=== PATIENT | male | born 1955 | race Caucasian/White ===

== ENCOUNTER 2019-10-11 10:06 | Inpatient (IN) | payer MEDICARE, OTHER ==
[~2019-10-11] VITALS: Ht 172.7 cm; Wt 97.5 kg
--- NOTE | 2019-10-11 10:20 | NUR ---
ED Nurse Note: Patient walked into ED from home, sent by Dr. Flores for further evaluation. patient c/o shorntess of breath, generalized weakness for 1week. patient reports he is prescribed amoxicillin, with no improvement. patient is alert awake x4 ambulatory, able to speak in full sentences. does appear to be weak. 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 c/o pain on the left shoulder pain radiating to his left lower back.
[2019-10-11 10:57] LABS: BASOPHILS % (AUTO) 0.9 % (0.0-2.0); EOSINOPHILS % (AUTO) 1.5 % (0.0-3.0); HEMATOCRIT 42.7 % (42.0-52.0); HEMOGLOBIN 14.2 G/DL (14.2-18.0); LYMPHOCYTES % (AUTO) 5.8 % (20.0-45.0); MEAN CORPUSCULAR VOLUME 84 FL (80-99); MONOCYTES % (AUTO) 9.5 % (1.0-10.0); NEUTROPHILS % (AUTO) 82.3 % (45.0-75.0); PLATELET COUNT 159 K/UL (150-450); RED BLOOD COUNT 5.09 M/UL (4.70-6.10); RED CELL DISTRIBUTION WIDTH 13.2 % (11.6-14.8); WHITE BLOOD COUNT 12.6 K/UL (4.8-10.8)
[2019-10-11] MEDS ORDERED: Vancomycin 1.5 GM in NS 275 ML IVPB ONE (11:00)
[2019-10-11] MEDS ORDERED: Cefepime HCl 2 GM in D5W 55 ML IVPB ONE (11:00)
[2019-10-11] MEDS ORDERED: Morphine Sulfate 4mg/ml Inj (IV USE ONLY) IVP ONE (11:00)
--- NOTE | 2019-10-11 11:09 | Diagnostic Imaging Report ---
Indication: Chest pain Comparison: 09/03/2015 A single view chest radiograph was obtained. Findings: Pulmonary vascular congestion demonstrated. There is airspace consolidation at the left lung base obscuring the left hemidiaphragm. Pacemaker is again noted on the left. Heart is enlarged. IMPRESSION: CHF. Consolidation at the left lung base which may be related to CHF or superimposed pneumonia and/or effusion.
[2019-10-11 11:10] VITALS: BP 110/67
[2019-10-11 11:10] LABS: INR 1.2 (0.9-1.1)
[2019-10-11 11:12] LABS: ANION GAP 5 mmol/L (5-15); BLOOD UREA NITROGEN 60 mg/dL (7-18); CALCIUM 8.7 MG/DL (8.5-10.1); CARBON DIOXIDE 31 MMOL/L (21-32); CHLORIDE 91 MMOL/L (98-107); CREATININE 2.2 MG/DL (0.55-1.30); SODIUM 127 MMOL/L (136-145)
[2019-10-11 11:25] LABS: ALANINE AMINOTRANSFERASE 164 U/L (12-78); ALBUMIN 2.3 G/DL (3.4-5.0); ALBUMIN/GLOBULIN RATIO 0.5 (1.0-2.7); ALKALINE PHOSPHATASE 162 U/L (46-116); ASPARTATE AMINO TRANSFERASE 75 U/L (15-37); CREATINE KINASE 120 U/L (26-308); PHOSPHORUS 3.5 MG/DL (2.5-4.9)
--- NOTE | 2019-10-11 11:58 | NUR ---
ED Nurse Note: Nadine (): [phone]
--- NOTE | 2019-10-11 12:19 | NUR ---
ED Nurse Note: Urine specimen collected and sent to lab.
--- NOTE | 2019-10-11 12:50 | NUR ---
ED Nurse Note: NOTIFIED DR. ZAPATA THE PT.'S POTASSIUM LEVEL
[2019-10-11 12:55] LABS: APPEARANCE,URINE CLEAR; BILIRUBIN, URINE NEGATIVE (NEGATIVE); GLUCOSE, URINE (UA) NEGATIVE (NEGATIVE); KETONES,URINE NEGATIVE (NEGATIVE); LEUKOCYTE ESTERASE ,URINE NEGATIVE (NEGATIVE); NITRITE,URINE NEGATIVE (NEGATIVE); PH,URINE 5 (4.5-8.0); PROTEIN,URINE 3+ (NEGATIVE); UROBILINOGEN,URINE 1 MG/DL (0.0-1.0)
[2019-10-11 13:07] VITALS: BP 110/69
[2019-10-11 13:13] LABS: COLOR,URINE YELLOW
[2019-10-11] MEDS ORDERED: Enoxaparin 100mg Inj SUBQ ONE (13:15)
--- NOTE | 2019-10-11 13:39 | Emergency Room Report ---
History of Present Illness General Chief Complaint: Generalized Weakness Source: Patient Present Illness HPI 64-year-old male history of heart failure, CKD, hypertension, recently treated for pneumonia presents with fatigue generalized weakness x1 week, shortness of breath no known aggravating relieving factors severity is severe, constant patient was sent in by his primary care doctor for evaluation and treatment concerning for possible pneumonia versus CHF exacerbation Allergies: Coded Allergies: No Known Allergies (Unverified , 10/11/19) Patient History Past Medical History: see triage record Reviewed Nursing Documentation: PMH: Agreed; PSxH: Agreed Nursing Documentation-PMH Past Medical History: No History, Except For Hx Cardiac Problems: Yes - AFIB, CHF Hx Hypertension: Yes Hx Pacemaker: Yes Hx COPD: Yes Hx Diabetes: Yes Review of Systems All Other Systems: negative except mentioned in HPI Physical Exam Vital Signs Date Time Temp Pulse Resp B/P (MAP) Pulse Ox O2 Delivery O2 Flow Rate FiO2 10/11/19 10:16 97.7 70 19 68/ 90 Room Air Sp02 EP Interpretation: reviewed, normal General Appearance: well appearing, no apparent distress, alert Head: normocephalic, atraumatic Eyes: bilateral eye PERRL, bilateral eye EOMI ENT: uvula midline, dry mucus membranes Neck: supple, thyroid normal, supple/symm/no masses Respiratory: no respiratory distress, no retraction, no accessory muscle use, crackles - left lower lobe , rales - left lower lobe Cardiovascular #1: normal peripheral pulses, regular rate, rhythm, no edema, no gallop, no murmur Gastrointestinal: non tender, soft, no guarding, no rebound Musculoskeletal: normal inspection Neurologic: alert, oriented x3 Psychiatric: mood/affect normal Skin: no rash, warm/dry Procedures Critical Care Time Critical Care Time Given the critical condition in which the patient arrived, the patient was immediately assessed by myself and the nurse, and cardiac monitoring initiated due to the potential for rapid decompensation of the patient's clinical condition. During the course of the patient's stay, I spent a considerable amount of time at the bedside performing serial re-evaluations of the patient's hemodynamic and clinical status because of the recognized potential threat to life or limb in this condition. I then had a chance to review not only all of the available current laboratory and radiographic studies obtained today, but I also reviewed old records available to me at the time. Additionally, any ancillary information available including flux tube attendant records were reviewed. Sequential vital signs were obtained. Critical Care time of 31 minutes was performed exclusive of billable procedures. Medical Decision Making Diagnostic Impression: Primary Impression: Dehydration Additional Impressions: Failure of outpatient treatment Pneumonia Qualified Codes: J18.9 - Pneumonia, unspecified organism Sepsis Qualified Codes: A41.9 - Sepsis, unspecified organism NSTEMI (non-ST elevated myocardial infarction) ER Course 64-year-old male presents with vague complaints differential diagnosis includes sepsis, pneumonia, ACS, and NSTEMI patient given antibiotics for possible failure of outpatient treatment, patient with left lower lobe consolidation on x-ray as well as from exam Patient with history of AICD/pacemaker, will hold off on fluids unless lactic is elevated, patient also given a shot of Lovenox given his NSTEMI with slightly elevated troponin leak cefepime vancomycin Patient remains critical but stable we will continue to monitor Patient admitted to Dr. Castle Laboratory Tests Test 10/11/19 10:40 10/11/19 12:17 White Blood Count 12.6 K/UL (4.8-10.8) H Red Blood Count 5.09 M/UL (4.70-6.10) Hemoglobin 14.2 G/DL (14.2-18.0) Hematocrit 42.7 % (42.0-52.0) Mean Corpuscular Volume 84 FL (80-99) Mean Corpuscular Hemoglobin 27.8 PG (27.0-31.0) Mean Corpuscular Hemoglobin Concent 33.2 G/DL (32.0-36.0) Red Cell Distribution Width 13.2 % (11.6-14.8) Platelet Count 159 K/UL (150-450) Mean Platelet Volume 6.9 FL (6.5-10.1) Neutrophils (%) (Auto) 82.3 % (45.0-75.0) H Lymphocytes (%) (Auto) 5.8 % (20.0-45.0) L Monocytes (%) (Auto) 9.5 % (1.0-10.0) Eosinophils (%) (Auto) 1.5 % (0.0-3.0) Basophils (%) (Auto) 0.9 % (0.0-2.0) Prothrombin Time 12.4 SEC (9.30-11.50) H Prothrombin Time INR 1.2 (0.9-1.1) H Activated Partial Thromboplast Time 31 SEC (23-33) Sodium Level 127 MMOL/L (136-145) L Potassium Level 3.0 MMOL/L (3.5-5.1) L Chloride Level 91 MMOL/L (98-107) L Carbon Dioxide Level 31 MMOL/L (21-32) Anion Gap 5 mmol/L (5-15) Blood Urea Nitrogen 60 mg/dL (7-18) H Creatinine 2.2 MG/DL (0.55-1.30) H Estimate Glomerular Filtration Rate 30.4 mL/min (>60) Glucose Level 173 MG/DL (74-106) H Lactic Acid Level 1.20 mmol/L (0.4-2.0) Calcium Level 8.7 MG/DL (8.5-10.1) Phosphorus Level 3.5 MG/DL (2.5-4.9) Magnesium Level 2.2 MG/DL (1.8-2.4) Total Bilirubin 1.0 MG/DL (0.2-1.0) Aspartate Amino Transferase (AST) 75 U/L (15-37) H Alanine Aminotransferase (ALT) 164 U/L (12-78) H Alkaline Phosphatase 162 U/L (46-116) H Total Creatine Kinase 120 U/L (26-308) Troponin I 0.252 ng/mL (0.000-0.056) Pro-B-Type Natriuretic Peptide 3899 pg/mL (0-125) H Total Protein 7.3 G/DL (6.4-8.2) Albumin 2.3 G/DL (3.4-5.0) L Globulin 5.0 g/dL Albumin/Globulin Ratio 0.5 (1.0-2.7) L Lipase 356 U/L (73-393) Urine Color Yellow Urine Appearance Clear Urine pH 5 (4.5-8.0) Urine Specific [place] 1.020 (1.005-1.035) Urine Protein 3+ (NEGATIVE) H Urine Glucose (UA) Negative (NEGATIVE) Urine Ketones Negative (NEGATIVE) Urine Blood 2+ (NEGATIVE) H Urine Nitrite Negative (NEGATIVE) Urine Bilirubin Negative (NEGATIVE) Urine Urobilinogen 1 MG/DL (0.0-1.0) H Urine Leukocyte Esterase Negative (NEGATIVE) Urine RBC 2-4 /HPF (0 - 0) H Urine WBC 2-4 /HPF (0 - 0) Urine Squamous Epithelial Cells Occasional /LPF Urine Bacteria Occasional /HPF (NONE) Urine Granular Casts 0-2 /LPF (NONE) H Urine Fine Granular Casts 0-2 /LPF (NONE) H Microbiology Date/Time Source Procedure Growth Status 10/11/19 10:40 Nasal Nares - Final Complete 10/11/19 10:40 Nasal Nares - Final Complete EKG Diagnostic Results EKG Time: 11:36 EP Interpretation: V paced, rate 73, QTc 528, no acute ST elevations, right axis dev Rhythm Strip Diag. Results Rhythm Strip Time: 13:34 EP Interpretation: yes Rate: 80 Rhythm: other - V paced rhythm Chest X-Ray Diagnostic Results Chest X-Ray Diagnostic Results : Chest X-Ray Ordered: Yes # of Views/Limited/Complete: 1 View Indication: Chest Pain EP Interpretation: Yes Interpretation: other - Left lower lobe consolidation Impression: Other - Left lower lobe consolidation Electronically Signed by: Tomas Roque MD Last Vital Signs Date Time Temp Pulse Resp B/P (MAP) Pulse Ox O2 Delivery O2 Flow Rate FiO2 10/11/19 13:07 97.7 78 19 110/69 98 Room Air Disposition: ADMITTED INPATIENT Condition: Serious Referrals: NON PHYSICIAN (PCP) Tomas Roque MD Oct 11, 2019 13:39
[2019-10-11 14:45] VITALS: BP 117/62
--- NOTE | 2019-10-11 15:35 | NUR ---
ED Nurse Note: report given to Davon RN, endorsed all plan of care to him
--- NOTE | 2019-10-11 15:51 | NUR ---
ED Nurse Note: patient is being transferred to 2E with all of his belongings on ACLS protocol
[2019-10-11 16:30] VITALS: BP 135/83
[2019-10-11] MEDS ORDERED: Albuterol ud Inhalation HHN PRN (18:00)
[2019-10-11 20:00] VITALS: BP 123/82
[2019-10-11] MEDS: Albuterol ud Inhalation HHN SCH ×2 (20:11→23:29)
--- NOTE | 2019-10-11 20:28 | NUR ---
NURSE NOTES: Received pt from JUAN ROSARIO [id number], all admission assessments and instructions done and pt verbally confirmed to understand all. Pt is alert and orient x4. pt has SOB with NC 2LMP, Pt has intact iv access RAC 20G SL. Skin is intact.Dr blackman is notified about admission, WBC, K BS, and other lab results and V/S, all orders noted and carried out. pt doesn't remember the names of home meds, Dr blackman notified. all needs attended, bed is locked and is in the lowest position, call light within easy reach, will continue to monitor. Report given to KHANH WHITEHEAD.
--- NOTE | 2019-10-11 20:30 | NUR ---
NURSE NOTES: Received pt from VENTURA Marsh, Pt is alert and oriented x4. pt has SOB with 2 L O2 NC , Pt has intact IV access RAC 20G SL. Bed is locked and is in the lowest position, call light within reach, will continue to monitor.
[2019-10-11] MEDS: Piperacillin/Tazobactam 3.375 GM in NS 110 ML IVPB SCH (22:22)
[2019-10-11] MEDS: Azithromycin 250mg tab ORAL SCH (22:22)
[2019-10-11] MEDS: NovoLOG Insulin Flexpen SUBQ SCH (22:22)
[2019-10-12] VITALS: BP 118/71
[2019-10-12] MEDS: Albuterol ud Inhalation HHN SCH ×6 (02:58→22:48)
[2019-10-12 04:00] VITALS: BP 122/76
[2019-10-12 06:38] LABS: BASOPHILS % (AUTO) 0.7 % (0.0-2.0); EOSINOPHILS % (AUTO) 3.3 % (0.0-3.0); HEMATOCRIT 35.6 % (42.0-52.0); HEMOGLOBIN 12.2 G/DL (14.2-18.0); LYMPHOCYTES % (AUTO) 6.9 % (20.0-45.0); MEAN CORPUSCULAR VOLUME 85 FL (80-99); NEUTROPHILS % (AUTO) 80.2 % (45.0-75.0); PLATELET COUNT 179 K/UL (150-450); RED BLOOD COUNT 4.21 M/UL (4.70-6.10); RED CELL DISTRIBUTION WIDTH 13.4 % (11.6-14.8); WHITE BLOOD COUNT 11.6 K/UL (4.8-10.8)
[2019-10-12] MEDS: Piperacillin/Tazobactam 3.375 GM in NS 110 ML IVPB SCH ×3 (06:47→22:32)
[2019-10-12] MEDS: Vancomycin 1.25gm/NS Premix IVPB SCH (06:47)
[2019-10-12] MEDS: NovoLOG Insulin Flexpen SUBQ SCH ×4 (07:00→22:34)
[2019-10-12 07:15] LABS: ANION GAP 8 mmol/L (5-15); BLOOD UREA NITROGEN 56 mg/dL (7-18); CALCIUM 8.3 MG/DL (8.5-10.1); CARBON DIOXIDE 27 MMOL/L (21-32); CHLORIDE 95 MMOL/L (98-107); CREATININE 2.3 MG/DL (0.55-1.30); POTASSIUM 3.1 MMOL/L (3.5-5.1); SODIUM 130 MMOL/L (136-145)
--- NOTE | 2019-10-12 07:25 | NUR ---
NURSE NOTES: Received pt from KHANH WHITEHEAD, Pt is alert and orient x4. pt has SOB with NC 2LMP, Pt has intact iv access RAC 20G SL. Skin is intact.Dr blackman is notified about admission, WBC, K , other lab results waiting to call back. all needs attended, bed is locked and is in the lowest position, call light within easy reach, will continue to monitor.
[2019-10-12 08:00] VITALS: BP 123/83
--- NOTE | 2019-10-12 08:05 | NUR ---
HAND-OFF: Report given to VENTURA Marsh.
[2019-10-12] MEDS: Azithromycin 250mg tab ORAL SCH (08:56)
[2019-10-12] MEDS: Furosemide 40mg tab ORAL SCH (08:57)
[2019-10-12] MEDS: Carvedilol 25mg Tab ORAL SCH ×2 (08:57→22:32)
[2019-10-12] MEDS ORDERED: Xarelto 10mg tab ORAL SCH (09:00)
--- NOTE | 2019-10-12 09:17 | NUR ---
NURSE NOTES: pt refused thoracentesis, Dr POLO notified and he stated ok and ordered to start XARELTO, noted and carried out. will continue to monitor.
--- NOTE | 2019-10-12 09:25 | NUR ---
NURSE NOTES: 5MG XARELTO WASTED IN MED ROOM.
--- NOTE | 2019-10-12 11:03 | Diagnostic Imaging Report ---
Indication: Pleural effusion Technique: Grayscale and duplex images of the lateral hemithoraces Comparison: none Findings: There is a small left pleural effusion demonstrated. No pleural fluid is seen on the right Impression: Small left pleural effusion Note that ordered thoracentesis not performed, per patient request
[2019-10-12 12:00] VITALS: BP 121/73
--- NOTE | 2019-10-12 13:30 | History and Physical Report ---
DATE OF ADMISSION: 10/11/2019 REASON FOR ADMISSION: Pneumonia. HISTORY OF PRESENT ILLNESS: This is a 64-year-old male with history of heart failure, chronic kidney disease, presents with increasing shortness of breath, hypotension in the office. The patient also noted to be more dyspneic with some congestion. The patient overall did not improve and was noted to have what appeared to be fairly acute symptoms. The patient therefore was transferred to the emergency room and then thereafter admitted. The patient's care discussed and reviewed. The patient is feeling slightly better this morning after evaluation. The patient does have multitude of medical problems and also had significant pneumonia and possibly associated parapneumonic effusion on x-ray. The patient admits to some low-grade fevers. He does have oxygen at home, which he has been using more readily. PAST MEDICAL HISTORY: Notable for COPD, pacemaker, hypertension, CHF, atrial fibrillation paroxysmal, and chronic kidney disease. MEDICATIONS: Reviewed. ALLERGIES: Reviewed. SOCIAL HISTORY: The patient is a past smoker. Nonsmoker and nondrinker at present. REVIEW OF SYSTEMS: All 10 points reviewed and otherwise negative with the exception of the above. FAMILY HISTORY: Noncontributory as above. PHYSICAL EXAMINATION: GENERAL: Well-developed male, at present, comfortable. VITAL SIGNS: Blood pressure 122/76, pulse 71, respirations 20, sats 97%, temperature 97.9. HEENT: Negative. Extraocular movements are grossly intact. NECK: Supple. LUNGS: With significantly reduced breath sounds at the left lung base. Otherwise clear. CARDIAC: S1, S2, overall irregularly irregular. The patient has a pacemaker, left chest wall. ABDOMEN: Soft, nontender. EXTREMITIES: No cyanosis, clubbing, or edema. LABORATORY DATA: Sodium 130, BUN 56, creatinine 2.3. Previous sodium 127, potassium 3.1. Troponin 0.252. X-ray is noted with left lower lobe consolidation, possible effusion. IMPRESSION: 1. Pneumonia, possible parapneumonic effusion. 2. History of CHF. 3. Chronic renal failure. 4. Hyponatremia, hypokalemia. 5. Elevated troponin, possible demand ischemia. 6. Elevated natriuretic peptide. 7. Atrial fibrillation, paroxysmal. RECOMMENDATIONS: Supportive care. Resume home medication. IV antibiotics. Cardiology evaluation. ID evaluation. Follow up x-ray exam. Attempt to obtain thoracentesis and optimize care as able. Care discussed and reviewed and once approval to proceed with discharge planning with home health. Vasile Castle M.D. DR: TISH JOB#: [id number] CC: RUT
--- NOTE | 2019-10-12 14:12 | NUR ---
CASE MANAGEMENT:REVIEW 64 YR OLD MALE PRESENTED TO OUR ER CC: GENERALIZED WEAKNESS. SOB SI: DEHYDRATION. SEPSIS. PNA 97.7 70 19 BP~68/L 90% ON RA WBC+12.6 IS: LOVENOX SQ IV KCL PO K-DUR IV CEFEPIME IV VANCOMYCIN IV MORPHINE IV ZOFRAN CHEST XRAY : TO TELEMETRY DCP: FROM HOME I
[2019-10-12 15:48] VITALS: BP 125/74
--- NOTE | 2019-10-12 17:45 | Consultation ---
DATE OF CONSULTATION: 10/12/2019 INFECTIOUS DISEASES CONSULTATION CONSULTING PHYSICIAN: Mari Bloom M.D. REFERRING PHYSICIAN: Vasile Castle M.D. REASON FOR CONSULTATION: Pneumonia. HISTORY OF PRESENTING ILLNESS: This is a 64-year-old gentleman with history of diabetes, hypertension, congestive heart failure, atrial fibrillation, status post pacemaker placement and defibrillator placement who was recently treated for pneumonia who comes in with shortness of breath, cough along with pain on coughing. There was a concern for pneumonia and an Infectious Diseases consultation has been obtained for antibiotics. PAST MEDICAL HISTORY: 1. History of diabetes. 2. Hypertension. 3. Asthma. 4. History of pacemaker placement. 5. History of defibrillator placement. 6. History of congestive heart failure. 7. Atrial fibrillation. SOCIAL HISTORY: He used to be a smoker. He does not smoke anymore. He used to drink alcohol. He does not drink anymore. No history of drug use. FAMILY HISTORY: Noncontributory. REVIEW OF SYSTEMS: RESPIRATORY: No fever or chills. He has cough. He has shortness of breath. He has pain on coughing. CARDIAC: No chest pain. No palpitations. No dizziness. No syncope. GASTROINTESTINAL: No nausea. No vomiting. No abdominal pain or diarrhea. MEDICATIONS: As an inpatient, he is on Xarelto, Protonix, Coreg, Lasix, IV vancomycin, Zosyn, insulin, azithromycin, Proventil, albuterol, Tylenol, Mylanta. ALLERGIES: No known drug allergies. PHYSICAL EXAMINATION: VITAL SIGNS: Temperature of 97.3, T-max of 98.2, pulse of 72, respiratory rate 18, blood pressure 123/83, O2 saturation of 94%. HEENT: Pupils equally reactive to light and accommodation. Mouth appears clean without thrush. NECK: Supple. No adenopathy. No JVD. CARDIOVASCULAR: Regular rate and rhythm. No murmurs. LUNGS: Clear to auscultation bilaterally. No crackles. No wheezes. ABDOMEN: Soft, nontender. No organomegaly. EXTREMITIES: No cyanosis, no clubbing, no edema. LABORATORY AND DIAGNOSTIC DATA: White count of 11.6 today, white count of 12.6 yesterday, hemoglobin 12.2, hematocrit 35.6, MCV 85, platelet count of 179, neutrophils of 80%. Sodium 130, potassium 3.1, chloride 95, bicarb 27, BUN 56, creatinine 2.3, glucose 182, calcium 8.3. Total bilirubin 1, AST 75, ALT 164, alkaline phosphatase 162. CK 120, troponin 0.25. Beta natriuretic peptide 3899. Total protein 7.3, albumin 2.3. Alkaline phosphatase 356. UA is showing 2 to 4 white cells. Chest x-ray showing consolidation at the left lung base, which may be related to congestive heart failure, pneumonia, or effusion. ASSESSMENT: This is a 64-year-old male with history of hypertension, diabetes, congestive heart failure who comes in with shortness of breath and is found to have. 1. Possible community-acquired pneumonia versus atypical pneumonia. 2. Diabetes. 3. Hypertension. 4. Leukocytosis, improving. 5. Congestive heart failure. PLAN: 1. Continue vancomycin, Zosyn, and azithromycin. 2. We will order sputum for Gram stain and culture. 3. We will order for serum Legionella antibody. 4. We will order for mycoplasma serology. 5. We will follow up cultures and adjust antibiotics accordingly. I would like to thank, Dr. Castle, for this consultation. Mari Bloom M.D. DR: KRISTIN JOB#: [id number] CC: Vasile Castle M.D.; Fax#: [phone]
--- NOTE | 2019-10-12 19:38 | NUR ---
HAND-OFF: Report given to KHANH WHITEHEAD. Pt is awake and stable.
--- NOTE | 2019-10-12 19:40 | NUR ---
NURSE NOTES: Pt is alert and oriented x4. On 2 L O2 NC , has some painful cough. Pt has intact IV access RAC 20G SL. Bed is locked and is in the lowest position, call light within reach, will continue to monitor.
[2019-10-12 20:00] VITALS: BP 115/67
[2019-10-13] VITALS (7 sets, daily range): BP systolic 95–127; BP diastolic 50–80
[2019-10-13] MEDS: Albuterol ud Inhalation HHN SCH ×6 (03:33→23:15)
[2019-10-13] MEDS: NovoLOG Insulin Flexpen SUBQ SCH ×4 (06:50→20:50)
[2019-10-13] MEDS: Piperacillin/Tazobactam 3.375 GM in NS 110 ML IVPB SCH ×3 (06:51→22:13)
[2019-10-13] MEDS: Vancomycin 1.25gm/NS Premix IVPB SCH (06:54)
[2019-10-13 07:24] LABS: BASOPHILS % (AUTO) 0.4 % (0.0-2.0); EOSINOPHILS % (AUTO) 4.2 % (0.0-3.0); HEMOGLOBIN 13.2 G/DL (14.2-18.0); LYMPHOCYTES % (AUTO) 7.8 % (20.0-45.0); MEAN CORPUSCULAR VOLUME 85 FL (80-99); NEUTROPHILS % (AUTO) 80.6 % (45.0-75.0); PLATELET COUNT 225 K/UL (150-450); RED BLOOD COUNT 4.59 M/UL (4.70-6.10); RED CELL DISTRIBUTION WIDTH 13.5 % (11.6-14.8); WHITE BLOOD COUNT 12.6 K/UL (4.8-10.8)
[2019-10-13 07:35] LABS: ANION GAP 9 mmol/L (5-15); BLOOD UREA NITROGEN 48 mg/dL (7-18); CALCIUM 8.4 MG/DL (8.5-10.1); CARBON DIOXIDE 29 MMOL/L (21-32); CHLORIDE 96 MMOL/L (98-107); CREATININE 2.4 MG/DL (0.55-1.30); POTASSIUM 3.5 MMOL/L (3.5-5.1); SODIUM 134 MMOL/L (136-145)
--- NOTE | 2019-10-13 08:06 | NUR ---
NURSE NOTES: Received patient from Elgin Barlow. Patient is awake sitting up in bed. No complain of pain or discomfort at this time. Patient is eating his breakfast. Reminded patient regarding fall precautions,verbalizes understanding. Will monitor patient this shift.
--- NOTE | 2019-10-13 08:30 | NUR ---
HAND-OFF: Report given to VENTURA Cao.
[2019-10-13] MEDS: Xarelto 15mg tab ORAL SCH (08:38)
[2019-10-13] MEDS: Furosemide 40mg tab ORAL SCH (08:38)
[2019-10-13] MEDS: Azithromycin 250mg tab ORAL SCH (08:39)
[2019-10-13] MEDS: Carvedilol 25mg Tab ORAL SCH ×2 (08:39→20:43)
--- NOTE | 2019-10-13 08:53 | NUR ---
CASE MANAGEMENT:REVIEW 10/13/19 SI: SEPSIS. PNA T~96.0 BP~95/58 WBC+12.6 BUN+48 CR+2.4 IS: IV ZOSYN Q8HRS IV VANCOMYCIN Q24 XARELTO PO QD COREG PO Q12 LASIX PO QD : TELEMETRY STATUS DCP: FROM HOME
[2019-10-13] MEDS ORDERED: Vancomycin 1.5gm/D5W 275ml IVPB SCH ×2 (12:00)
[2019-10-13] MEDS ORDERED: Vancomycin 1.5gm/NS Premix 275 ML IVPB SCH (12:00)
[2019-10-13] MEDS: guaiFENesin 100mg/5ml Liq ud ORAL PRN ×3 (12:47→22:14)
--- NOTE | 2019-10-13 13:01 | Diagnostic Imaging Report ---
Indication: Shortness of breath Technique: One view of the chest Comparison: 10/11/2019 Findings: Dense consolidation and likely pleural fluid again demonstrated in the left mid and lower lung, appearing more extensive superiorly. Interstitial edema on the right is unchanged. Left chest biventricular AICD is again demonstrated. Impression: Worsening parenchymal infiltrates versus edema on the left. Otherwise stable findings as described, over 2 days
--- NOTE | 2019-10-13 13:11 | Cardiac Electrophysiology PN ---
Subjective Subjective [id number] Objective Last 24 Hour Vital Signs Date Time Temp Pulse Resp B/P (MAP) Pulse Ox O2 Delivery O2 Flow Rate FiO2 10/13/19 12:00 97.8 74 20 119/69 (86) 94 10/13/19 10:11 78 18 99 Nasal Cannula 2.0 28 74 18 97 10/13/19 09:00 Nasal Cannula 2.0 10/13/19 08:39 75 95/58 10/13/19 08:00 97.7 75 20 95/58 (70) 93 10/13/19 08:00 78 10/13/19 07:16 96 Room Air 2.0 28 10/13/19 07:15 75 18 98 Nasal Cannula 2.0 28 70 18 96 10/13/19 04:41 96.6 74 17 96/50 (65) 92 10/13/19 04:00 73 10/13/19 04:00 96.9 71 17 107/62 (77) 96 10/13/19 03:20 83 18 100 Nasal Cannula 2.0 28 81 18 96 10/13/19 00:00 96.9 71 17 107/62 (77) 96 10/13/19 00:00 73 10/13/19 00:00 96.0 73 18 105/67 (80) 95 10/12/19 22:48 80 18 100 Nasal Cannula 2.0 79 18 97 10/12/19 22:32 73 120/67 10/12/19 21:00 Nasal Cannula 2.0 10/12/19 20:00 72 10/12/19 20:00 97.0 73 18 115/67 (83) 95 10/12/19 19:38 78 18 100 Nasal Cannula 2.0 77 18 99 10/12/19 19:38 99 Room Air 21 10/12/19 17:51 97.1 10/12/19 16:04 71 10/12/19 15:48 97.1 75 18 125/74 (91) 93 10/12/19 14:57 75 18 98 Nasal Cannula 2.0 28 73 18 91 Intake and Output 10/12/19 10/13/19 19:00 07:00 Intake Total 810.833 ml 200 ml Output Total 950 ml 1000 ml Balance -139.167 ml -800 ml Intake Oral 490 ml IV Total 320.833 ml Other 200 ml Output Urine Total 950 ml 1000 ml # Voids 4 Laboratory Tests Test 10/13/19 05:26 White Blood Count 12.6 K/UL (4.8-10.8) H Red Blood Count 4.59 M/UL (4.70-6.10) L Hemoglobin 13.2 G/DL (14.2-18.0) L Hematocrit 39.0 % (42.0-52.0) L Mean Corpuscular Volume 85 FL (80-99) Mean Corpuscular Hemoglobin 28.8 PG (27.0-31.0) Mean Corpuscular Hemoglobin Concent 33.9 G/DL (32.0-36.0) Red Cell Distribution Width 13.5 % (11.6-14.8) Platelet Count 225 K/UL (150-450) Mean Platelet Volume 6.1 FL (6.5-10.1) L Neutrophils (%) (Auto) 80.6 % (45.0-75.0) H Lymphocytes (%) (Auto) 7.8 % (20.0-45.0) L Monocytes (%) (Auto) 7.0 % (1.0-10.0) Eosinophils (%) (Auto) 4.2 % (0.0-3.0) H Basophils (%) (Auto) 0.4 % (0.0-2.0) Sodium Level 134 MMOL/L (136-145) L Potassium Level 3.5 MMOL/L (3.5-5.1) Chloride Level 96 MMOL/L (98-107) L Carbon Dioxide Level 29 MMOL/L (21-32) Anion Gap 9 mmol/L (5-15) Blood Urea Nitrogen 48 mg/dL (7-18) H Creatinine 2.4 MG/DL (0.55-1.30) H Estimat Glomerular Filtration Rate 27.5 mL/min (>60) Glucose Level 162 MG/DL (74-106) H Calcium Level 8.4 MG/DL (8.5-10.1) L Random Vancomycin Level 12.5 ug/mL Microbiology Date/Time Source Procedure Growth Status 10/11/19 11:15 Blood Blood Culture - Preliminary NO GROWTH AFTER 24 HOURS Resulted 10/11/19 10:40 Blood Blood Culture - Preliminary NO GROWTH AFTER 24 HOURS Resulted 10/11/19 10:40 Nasal Nares - Final Complete 10/11/19 10:40 Nasal Nares - Final Complete Hong Leon MD Oct 13, 2019 13:11
--- NOTE | 2019-10-13 14:13 | Infectious Diseases Prog Note ---
Assessment/Plan Assessment/Plan A; 1. Possible community-acquired pneumonia versus atypical pneumonia. 2. Diabetes. 3. Hypertension. 4. Leukocytosis, improving. 5. Congestive heart failure. PLAN: 1. Continue vancomycin, Zosyn, and azithromycin. 2. We will follow sputum for Gram stain and culture. 3. We will follow serum Legionella antibody. 4. We will follow mycoplasma serology. 5. We will follow up cultures and adjust antibiotics accordingly. Subjective ROS Limited/Unobtainable: No Constitutional: Reports: no symptoms Respiratory: Reports: dry cough Gastrointestinal/Abdominal: Reports: no symptoms Genitourinary: Reports: no symptoms Musculoskeletal: Reports: pain, other - back, shoulder chest Allergies: Coded Allergies: No Known Allergies (Unverified , 10/11/19) Objective Vital Signs Last 24 Hour Vital Signs Date Time Temp Pulse Resp B/P (MAP) Pulse Ox O2 Delivery O2 Flow Rate FiO2 10/13/19 12:00 76 10/13/19 12:00 97.8 74 20 119/69 (86) 94 10/13/19 10:11 78 18 99 Nasal Cannula 2.0 28 74 18 97 10/13/19 09:00 Nasal Cannula 2.0 10/13/19 08:39 75 95/58 10/13/19 08:00 97.7 75 20 95/58 (70) 93 10/13/19 08:00 78 10/13/19 07:16 96 Room Air 2.0 28 10/13/19 07:15 75 18 98 Nasal Cannula 2.0 28 70 18 96 10/13/19 04:41 96.6 74 17 96/50 (65) 92 10/13/19 04:00 73 10/13/19 04:00 96.9 71 17 107/62 (77) 96 10/13/19 03:20 83 18 100 Nasal Cannula 2.0 28 81 18 96 10/13/19 00:00 96.9 71 17 107/62 (77) 96 10/13/19 00:00 73 10/13/19 00:00 96.0 73 18 105/67 (80) 95 10/12/19 22:48 80 18 100 Nasal Cannula 2.0 28 79 18 97 10/12/19 22:32 73 120/67 10/12/19 21:00 Nasal Cannula 2.0 1/28/20 20:00 72 10/12/19 20:00 97.0 73 18 115/67 (83) 95 10/12/19 19:38 78 18 100 Nasal Cannula 2.0 28 77 18 99 10/12/19 19:38 99 Room Air 21 10/12/19 17:51 97.1 10/12/19 16:04 71 10/12/19 15:48 97.1 75 18 125/74 (91) 93 10/12/19 14:57 75 18 98 Nasal Cannula 2.0 28 73 18 91 Height (Feet): 5 Height (Inches): 8.00 Weight (Pounds): 215 HEENT: mucous membranes moist Respiratory/Chest: normal breath sounds Cardiovascular: normal rate, pacemaker/AICD Abdomen: soft, non tender Extremities: no edema Neurologic/Psychiatric: alert, oriented x 3, responsive Microbiology Date/Time Source Procedure Growth Status 10/11/19 11:15 Blood Blood Culture - Preliminary NO GROWTH AFTER 24 HOURS Resulted 10/11/19 10:40 Blood Blood Culture - Preliminary NO GROWTH AFTER 24 HOURS Resulted 10/11/19 10:40 Nasal Nares - Final Complete 10/11/19 10:40 Nasal Nares - Final Complete Laboratory Tests Test 10/13/19 05:26 White Blood Count 12.6 K/UL (4.8-10.8) H Red Blood Count 4.59 M/UL (4.70-6.10) L Hemoglobin 13.2 G/DL (14.2-18.0) L Hematocrit 39.0 % (42.0-52.0) L Mean Corpuscular Volume 85 FL (80-99) Mean Corpuscular Hemoglobin 28.8 PG (27.0-31.0) Mean Corpuscular Hemoglobin Concent 33.9 G/DL (32.0-36.0) Red Cell Distribution Width 13.5 % (11.6-14.8) Platelet Count 225 K/UL (150-450) Mean Platelet Volume 6.1 FL (6.5-10.1) L Neutrophils (%) (Auto) 80.6 % (45.0-75.0) H Lymphocytes (%) (Auto) 7.8 % (20.0-45.0) L Monocytes (%) (Auto) 7.0 % (1.0-10.0) Eosinophils (%) (Auto) 4.2 % (0.0-3.0) H Basophils (%) (Auto) 0.4 % (0.0-2.0) Sodium Level 134 MMOL/L (136-145) L Potassium Level 3.5 MMOL/L (3.5-5.1) Chloride Level 96 MMOL/L (98-107) L Carbon Dioxide Level 29 MMOL/L (21-32) Anion Gap 9 mmol/L (5-15) Blood Urea Nitrogen 48 mg/dL (7-18) H Creatinine 2.4 MG/DL (0.55-1.30) H Estimat Glomerular Filtration Rate 27.5 mL/min (>60) Glucose Level 162 MG/DL (74-106) H Calcium Level 8.4 MG/DL (8.5-10.1) L Random Vancomycin Level 12.5 ug/mL Current Medications Medications (Trade) Dose Ordered Sig/Trudy Route PRN Reason Start Time Stop Time Status Last Admin Dose Admin Acetaminophen (Tylenol) 650 mg Q4H PRN ORAL Mild Pain/Temp > 100.5 10/11/19 18:00 11/10/19 17:59 10/12/19 17:21 Al Hydroxide/Mg Hydroxide (Mylanta) 30 ml QIDPRN PRN ORAL Constipation 10/11/19 18:00 11/10/19 17:59 Albuterol Sulfate (Proventil) 2.5 mg Q4H PRN HHN Shortness of Breath 10/11/19 18:00 10/16/19 17:59 Albuterol Sulfate (Proventil) 2.5 mg Q4HRT HHN 10/11/19 19:00 10/16/19 18:59 10/13/19 10:11 Aspirin (Ecotrin) 81 mg DAILY ORAL 10/14/19 09:00 11/13/19 08:59 Atorvastatin Calcium (Lipitor) 20 mg BEDTIME ORAL 10/13/19 21:00 11/12/19 20:59 Azithromycin (Zithromax) 500 mg DAILY ORAL 10/11/19 20:00 10/18/19 19:59 10/13/19 08:39 Carvedilol (Coreg) 25 mg EVERY 12 HOURS ORAL 10/13/19 21:00 11/11/19 08:59 Dextrose (Dextrose 50%) 25 ml Q30M PRN IV Hypoglycemia 10/11/19 18:00 11/10/19 17:59 Dextrose (Dextrose 50%) 50 ml Q30M PRN IV Hypoglycemia 10/11/19 18:00 11/10/19 17:59 Furosemide (Lasix) 40 mg EVERY 12 HOURS IV 10/13/19 21:00 11/12/19 20:59 Guaifenesin (Robitussin) 300 mg Q4H PRN ORAL For Cough 10/13/19 10:27 11/12/19 10:26 10/13/19 12:47 Hydralazine HCl (Apresoline) 10 mg Q6HR ORAL 10/13/19 18:00 11/12/19 17:59 Insulin Aspart (NovoLOG) BEFORE MEALS AND HS SUBQ 10/11/19 21:00 11/10/19 20:59 10/13/19 12:49 Isosorbide Dinitrate (Isordil) 10 mg BID ORAL 10/13/19 18:00 11/12/19 17:59 Pantoprazole (Protonix) 40 mg DAILY ORAL 10/12/19 09:00 11/11/19 08:59 10/13/19 08:38 Piperacillin Sod/ Tazobactam Sod 3.375 gm/Sodium Chloride 110 ml @ 27.5 mls/hr Q8HR IVPB 10/11/19 22:00 10/18/19 21:59 10/13/19 06:51 Rivaroxaban (Xarelto) 15 mg DAILY ORAL 10/13/19 09:00 11/11/19 08:59 10/13/19 08:38 Vancomycin HCl (Vanco rx to dose) 1 ea DAILY PRN MISC Per rx protocol 10/11/19 18:00 11/10/19 17:59 [place] David MD Oct 13, 2019 14:13
[2019-10-13] MEDS: HydrALAZINE 10mg Tab ORAL SCH (17:16)
--- NOTE | 2019-10-13 17:29 | General Progress Note ---
Assessment/Plan Assessment/Plan: IMPRESSION: 1. Pneumonia, possible parapneumonic effusion. 2. History of CHF. 3. Chronic renal failure. 4. Hyponatremia, hypokalemia. 5. Elevated troponin, possible demand ischemia. 6. Elevated natriuretic peptide. 7. Atrial fibrillation, paroxysmal. PLAN care noted on lasix cards and ID oxygen not ready for dc follow up cxr and bnp reviewed with patient impression, plan, and exam edited and reviewed in detail care discussed with RN Subjective Allergies: Coded Allergies: No Known Allergies (Unverified , 10/11/19) Subjective care noted patient still with sob refused tap US noted Objective Last 24 Hour Vital Signs Date Time Temp Pulse Resp B/P (MAP) Pulse Ox O2 Delivery O2 Flow Rate FiO2 10/13/19 17:16 125/80 10/13/19 17:16 125/80 10/13/19 16:00 97.5 80 20 125/80 (95) 95 10/13/19 12:00 76 10/13/19 12:00 97.8 74 20 119/69 (86) 94 10/13/19 10:11 78 18 99 Nasal Cannula 2.0 28 74 18 97 10/13/19 09:00 Nasal Cannula 2.0 10/13/19 08:39 75 95/58 10/13/19 08:00 97.7 75 20 95/58 (70) 93 10/13/19 08:00 78 10/13/19 07:16 96 Room Air 2.0 28 10/13/19 07:15 75 18 98 Nasal Cannula 2.0 28 70 18 96 10/13/19 04:41 96.6 74 17 96/50 (65) 92 10/13/19 04:00 73 10/13/19 04:00 96.9 71 17 107/62 (77) 96 10/13/19 03:20 83 18 100 Nasal Cannula 2.0 28 81 18 96 10/13/19 00:00 96.9 71 17 107/62 (77) 96 10/13/19 00:00 73 10/13/19 00:00 96.0 73 18 105/67 (80) 95 10/12/19 22:48 80 18 100 Nasal Cannula 2.0 28 79 18 97 10/12/19 22:32 73 120/67 10/12/19 21:00 Nasal Cannula 2.0 10/12/19 20:00 72 10/12/19 20:00 97.0 73 18 115/67 (83) 95 10/12/19 19:38 78 18 100 Nasal Cannula 2.0 28 77 18 99 10/12/19 19:38 99 Room Air 21 10/12/19 17:51 97.1 Intake and Output 10/12/19 10/13/19 19:00 07:00 Intake Total 810.833 ml 200 ml Output Total 950 ml 1000 ml Balance -139.167 ml -800 ml Intake Oral 490 ml IV Total 320.833 ml Other 200 ml Output Urine Total 950 ml 1000 ml # Voids 4 Laboratory Tests 10/13/19 05:26: White Blood Count 12.6H, Red Blood Count 4.59L, Hemoglobin 13.2L, Hematocrit 39.0L, Mean Corpuscular Volume 85, Mean Corpuscular Hemoglobin 28.8, Mean Corpuscular Hemoglobin Concent 33.9, Red Cell Distribution Width 13.5, Platelet Count 225, Mean Platelet Volume 6.1L, Neutrophils (%) (Auto) 80.6H, Lymphocytes (%) (Auto) 7.8L, Monocytes (%) (Auto) 7.0, Eosinophils (%) (Auto) 4.2H, Basophils (%) (Auto) 0.4, Sodium Level 134L, Potassium Level 3.5, Chloride Level 96L, Carbon Dioxide Level 29, Anion Gap 9, Blood Urea Nitrogen 48H, Creatinine 2.4H, Estimat Glomerular Filtration Rate 27.5, Glucose Level 162H, Calcium Level 8.4L, Random Vancomycin Level 12.5 Height (Feet): 5 Height (Inches): 8.00 Weight (Pounds): 215 Objective GENERAL: Well-developed male, at present, comfortable. but still weak HEENT: Negative. Extraocular movements are grossly intact. NECK: Supple. LUNGS: With significantly reduced breath sounds at the left lung base. Otherwise clear. CARDIAC: S1, S2, overall irregularly irregular. The patient has a pacemaker, left chest wall. ABDOMEN: Soft, nontender. EXTREMITIES: No cyanosis, clubbing, or edema. Vasile Castle MD Oct 13, 2019 17:29
--- NOTE | 2019-10-13 17:30 | Consultation ---
DATE OF CONSULTATION: 10/13/2019 CARDIOLOGY CONSULTATION CONSULTING PHYSICIAN: Hong Leon M.D. REFERRING PHYSICIAN: Vasile Castle M.D. REASON FOR CONSULTATION: Evaluation of the patient's defibrillator and management of congestive heart failure and atrial fibrillation. HISTORY OF PRESENT ILLNESS: The patient is a 64-year-old gentleman with history of hypertension, diabetes, and severe cardiomyopathy as well as history of atrial fibrillation, who underwent a defibrillator implantation by Dr. Moulton originally in 2007 and subsequently underwent a generator change in 2013. The patient presented to the hospital for increasing shortness of breath and cough. The patient was evaluated by ID and started on IV antibiotic, and a Cardiology consultation was requested for management of congestive heart failure. REVIEW OF SYSTEMS: Negative other than what was mentioned in the history of present illness. PAST MEDICAL HISTORY: As mentioned above. FAMILY HISTORY: Noncontributory. SOCIAL HISTORY: He lives at home. Does not smoke or drink alcohol. PHYSICAL EXAMINATION: VITAL SIGNS: Show blood pressure 119/69, pulse 74, respirations 20, and he is afebrile. HEAD AND NECK: Shows positive JVD, but no carotid bruits. LUNGS: Coarse rhonchi. CARDIOVASCULAR: Shows irregular S1 and S2 with no gallop. Defibrillator in left subclavian. ABDOMEN: Soft. EXTREMITIES: 1+ pitting edema. LABORATORY AND DIAGNOSTIC DATA: His labs show white count of 12.6, hemoglobin 13.2, hematocrit 39, and platelet count 225,000. Sodium 134, potassium 3.5, BUN of 40, creatinine 2.4, and glucose of 162. Troponin is 0.252. ASSESSMENT AND PLAN: 1. Non-ST elevation myocardial infarction with elevated troponin at in a patient with history of cardiomyopathy and congestive heart failure. The patient, however, also has renal failure and this might be due to renal failure. We will keep the patient on aspirin, beta-sherlyn, and statin. We will repeat cardiac enzymes and echocardiogram for further evaluation. 2. History of severe cardiomyopathy. An echocardiogram is pending. The patient currently on Coreg 25 mg b.i.d. and Lasix 80 mg p.o. daily. I will hold off on the SRINI inhibitor and add hydralazine and nitrates to his medical regimen, change Lasix to 40 mg IV b.i.d. 3. Chronic atrial fibrillation, rate is controlled on Xarelto 15 mg daily, and he is also on Coreg 25 mg b.i.d. 4. Status post [facility] biventricular defibrillator and recent generator change. We will interrogate device for further evaluation. 5. Chronic obstructive pulmonary disease and pneumonia. Management by Dr. Castle and Dr. Bloom, on IV antibiotics. Thank you very much for allowing me to participate in the care of this patient. Please do not hesitate to contact me for any questions regarding my evaluation. Hong Leon M.D. DR: YANI JOB#: [id number] CC:
[2019-10-13] MEDS ORDERED: HydrALAZINE 10mg Tab ORAL SCH (18:00)
--- NOTE | 2019-10-13 19:45 | NUR ---
HAND-OFF: Report given to Elgin Mercado. Plan of care endorsed.
--- NOTE | 2019-10-13 19:56 | NUR ---
NURSE NOTES: Received report from VENTURA Cao. Patient is awake sitting on the edge of the bed; resting comfortably. No signs of acute distress noted; complains of some pain. On 2L nasal cannula. AOx4; able to make needs known. Ambulates with walker. Checked Iv site; patent and flushed. No erythema, bleeding, or infiltration noted. Urinal easily accessible. Bed at lowest position, brakes on, siderails up x3. Call light within reach. Will continue to monitor.
[2019-10-13] MEDS: Atorvastatin 20mg tab ORAL SCH (20:43)
[2019-10-14] VITALS (7 sets, daily range): BP systolic 99–127; BP diastolic 60–75
[2019-10-14] MEDS: HydrALAZINE 10mg Tab ORAL SCH ×4 (00:56→17:05)
[2019-10-14] MEDS: Albuterol ud Inhalation HHN SCH ×6 (03:00→23:00)
[2019-10-14] MEDS: guaiFENesin 100mg/5ml Liq ud ORAL PRN ×2 (05:20→17:05)
[2019-10-14] MEDS: Piperacillin/Tazobactam 3.375 GM in NS 110 ML IVPB SCH ×3 (05:22→21:11)
[2019-10-14] MEDS: NovoLOG Insulin Flexpen SUBQ SCH ×4 (05:23→21:12)
--- NOTE | 2019-10-14 07:16 | NUR ---
HAND-OFF: Report given to VENTURA Rodrigues. Patient is asleep lying semi-herrera's; resting comfortably. In stable condition.
[2019-10-14] MEDS: Aspirin EC 81mg tab ORAL SCH (08:50)
[2019-10-14] MEDS: Carvedilol 25mg Tab ORAL SCH ×2 (09:08→21:10)
[2019-10-14] MEDS: Xarelto 15mg tab ORAL SCH (09:09)
[2019-10-14] MEDS: Azithromycin 250mg tab ORAL SCH (09:09)
--- NOTE | 2019-10-14 09:31 | Infectious Diseases Prog Note ---
Assessment/Plan Assessment/Plan A; 1. Possible community-acquired pneumonia versus atypical pneumonia. 2. Diabetes. 3. Hypertension. 4. Leukocytosis, improving. 5. Congestive heart failure. PLAN: 1. Continue vancomycin, Zosyn, and azithromycin. 2. We will follow sputum for Gram stain and culture. 3. We will follow serum Legionella antibody. 4. We will follow mycoplasma serology. 5. We will follow up cultures and adjust antibiotics accordingly. Subjective ROS Limited/Unobtainable: Yes Constitutional: Denies: fever Allergies: Coded Allergies: No Known Allergies (Unverified , 10/11/19) Objective Vital Signs Last 24 Hour Vital Signs Date Time Temp Pulse Resp B/P (MAP) Pulse Ox O2 Delivery O2 Flow Rate FiO2 10/14/19 09:08 74 112/74 10/14/19 09:08 112/74 10/14/19 08:20 74 20 98 Nasal Cannula 2.0 28 76 20 93 10/14/19 08:19 93 Room Air 21 10/14/19 08:00 97.9 76 20 112/74 (87) 93 10/14/19 05:23 110/60 10/14/19 04:00 98.2 72 18 110/60 (77) 98 10/14/19 04:00 84 10/14/19 00:56 99/60 10/14/19 00:00 97.3 75 18 99/60 (73) 99 10/14/19 00:00 75 10/13/19 23:17 76 18 99 Nasal Cannula 2.0 28 73 18 97 10/13/19 21:00 Nasal Cannula 2.0 10/13/19 20:43 73 127/75 10/13/19 20:00 98.7 74 19 127/75 (92) 95 10/13/19 20:00 73 10/13/19 19:40 77 20 99 Nasal Cannula 2.0 28 74 20 97 10/13/19 19:39 97 Nasal Cannula 2.0 28 10/13/19 17:16 125/80 10/13/19 17:16 125/80 10/13/19 16:00 97.5 80 20 125/80 (95) 95 10/13/19 16:00 81 10/13/19 12:00 76 10/13/19 12:00 97.8 74 20 119/69 (86) 94 10/13/19 10:11 78 18 99 Nasal Cannula 2.0 28 74 18 97 Height (Feet): 5 Height (Inches): 8.00 Weight (Pounds): 215 General Appearance: no acute distress HEENT: mucous membranes moist Respiratory/Chest: lungs clear Cardiovascular: normal rate, pacemaker/AICD Abdomen: soft, non tender Extremities: other - mild pedal edema Neurologic/Psychiatric: other - sleeping Microbiology Date/Time Source Procedure Growth Status 10/11/19 11:15 Blood Blood Culture - Preliminary NO GROWTH AFTER 48 HOURS Resulted 10/11/19 10:40 Blood Blood Culture - Preliminary NO GROWTH AFTER 48 HOURS Resulted 10/11/19 10:40 Nasal Nares - Final Complete 10/11/19 10:40 Nasal Nares - Final Complete Laboratory Tests Test 10/14/19 05:27 Troponin I 0.104 ng/mL (0.000-0.056) Pro-B-Type Natriuretic Peptide 4125 pg/mL (0-125) H Current Medications Medications (Trade) Dose Ordered Sig/Trudy Route PRN Reason Start Time Stop Time Status Last Admin Dose Admin Acetaminophen (Tylenol) 650 mg Q4H PRN ORAL Mild Pain/Temp > 100.5 10/11/19 18:00 11/10/19 17:59 10/13/19 20:44 Al Hydroxide/Mg Hydroxide (Mylanta) 30 ml QIDPRN PRN ORAL Constipation 10/11/19 18:00 11/10/19 17:59 Albuterol Sulfate (Proventil) 2.5 mg Q4H PRN HHN Shortness of Breath 10/11/19 18:00 10/16/19 17:59 Albuterol Sulfate (Proventil) 2.5 mg Q4HRT HHN 10/11/19 19:00 10/16/19 18:59 10/14/19 08:24 Aspirin (Ecotrin) 81 mg DAILY ORAL 10/14/19 09:00 11/13/19 08:59 Atorvastatin Calcium (Lipitor) 20 mg BEDTIME ORAL 10/13/19 21:00 11/12/19 20:59 10/13/19 20:43 Azithromycin (Zithromax) 500 mg DAILY ORAL 10/11/19 20:00 10/18/19 19:59 10/14/19 09:09 Carvedilol (Coreg) 25 mg EVERY 12 HOURS ORAL 10/13/19 21:00 11/11/19 08:59 10/14/19 09:08 Dextrose (Dextrose 50%) 25 ml Q30M PRN IV Hypoglycemia 10/11/19 18:00 11/10/19 17:59 Dextrose (Dextrose 50%) 50 ml Q30M PRN IV Hypoglycemia 10/11/19 18:00 11/10/19 17:59 Furosemide (Lasix) 40 mg EVERY 12 HOURS IV 10/13/19 21:00 11/12/19 20:59 10/14/19 09:08 Guaifenesin (Robitussin) 300 mg Q4H PRN ORAL For Cough 10/13/19 10:27 11/12/19 10:26 10/14/19 05:20 Hydralazine HCl (Apresoline) 10 mg Q6HR ORAL 10/13/19 18:00 11/12/19 17:59 10/13/19 17:16 Insulin Aspart (NovoLOG) BEFORE MEALS AND HS SUBQ 10/11/19 21:00 11/10/19 20:59 10/14/19 05:23 Isosorbide Dinitrate (Isordil) 10 mg BID ORAL 10/13/19 18:00 11/12/19 17:59 10/14/19 09:08 Pantoprazole (Protonix) 40 mg DAILY ORAL 10/12/19 09:00 11/11/19 08:59 10/14/19 09:09 Piperacillin Sod/ Tazobactam Sod 3.375 gm/Sodium Chloride 110 ml @ 27.5 mls/hr Q8HR IVPB 10/11/19 22:00 10/18/19 21:59 10/14/19 05:22 Rivaroxaban (Xarelto) 15 mg DAILY ORAL 10/13/19 09:00 11/11/19 08:59 10/14/19 09:09 Vancomycin HCl (Vanco rx to dose) 1 ea DAILY PRN MISC Per rx protocol 10/11/19 18:00 11/10/19 17:59 Lake David MD Oct 14, 2019 09:31
--- NOTE | 2019-10-14 13:00 | Diagnostic Imaging Report ---
Clinical Indication: Cough Technique: Spiral acquisitions obtained through the chest. No IV contrast utilized, for referring physician request. Multiplanar reconstructions generated. Total dose length product 973 mGycm. CTDIvol(s) 20 mGy. Dose reduction achieved using automated exposure control Comparison: No comparison CT scans. Reference made to chest radiograph 10/13/2019 Findings: There is a moderate to large left pleural effusion. This results in compressive atelectasis of much of the left lower lobe. There is also probably a component of consolidation of the left lower lobe. Considerable consolidation and volume loss is seen involving much of the left upper lobe. The volume loss results in leftward shift of the mediastinal structures. Some fluid is also seen in the major fissure. The right lung demonstrates very mild groundglass opacity, which may in part be artifactual. No infiltrates, effusions, or congestion or nodules seen in the right lung. The heart is borderline enlarged. There is a small pericardial effusion. There is a biventricular AICD noted. Prominent but not frankly enlarged mediastinal lymph nodes are demonstrated. The esophagus is unremarkable. The thyroid is unremarkable. The bones demonstrate degenerative spondylosis changes. Included upper abdominal anatomy demonstrates renal cysts bilaterally. Impression: Consolidation and atelectasis of much of the left upper lobe. Compressive atelectasis of much of the left lower lobe and likely some associated consolidation due to a moderate to large left pleural effusion Equivocal slight groundglass opacity of the right lung, of doubtful significance, otherwise normal right lung and pleural space Borderline cardiomegaly Small pericardial effusion AICD Incidental findings of mild degenerative spondylosis changes, bilateral renal cysts The CT scanner at [facility] is accredited by the [employer] and the scans are performed using protocols designed to limit radiation exposure to as low as reasonably achievable to attain images of sufficient resolution adequate for diagnostic evaluation.
--- NOTE | 2019-10-14 15:55 | General Progress Note ---
Assessment/Plan Assessment/Plan: IMPRESSION: 1. Pneumonia, with parapneumonic effusion. 2. History of CHF. 3. Chronic renal failure. 4. Hyponatremia, hypokalemia. 5. Elevated troponin, possible demand ischemia. 6. Elevated natriuretic peptide. 7. Atrial fibrillation, paroxysmal. PLAN care noted on lasix cards and ID oxygen not ready for dc strongly recommend tap will add CPT for now repeat CXR in am son to discuss with him the need for tap impression, plan, and exam edited and reviewed in detail care discussed with RN Subjective Allergies: Coded Allergies: No Known Allergies (Unverified , 10/11/19) Subjective care noted patient still with sob refused tap CT chest reviewed d/w family in detail Objective Last 24 Hour Vital Signs Date Time Temp Pulse Resp B/P (MAP) Pulse Ox O2 Delivery O2 Flow Rate FiO2 10/14/19 15:09 71 20 98 Nasal Cannula 2.0 28 73 20 97 10/14/19 12:37 114/67 10/14/19 12:00 97.7 78 20 114/67 (83) 93 10/14/19 09:08 74 112/74 10/14/19 09:08 112/74 10/14/19 09:00 Nasal Cannula 2.0 10/14/19 08:20 74 20 98 Nasal Cannula 2.0 28 76 20 93 10/14/19 08:19 93 Room Air 21 10/14/19 08:00 97.9 76 20 112/74 (87) 93 10/14/19 05:23 110/60 10/14/19 04:00 98.2 72 18 110/60 (77) 98 10/14/19 04:00 84 10/14/19 00:56 99/60 10/14/19 00:00 97.3 75 18 99/60 (73) 99 10/14/19 00:00 75 10/13/19 23:17 76 18 99 Nasal Cannula 2.0 28 73 18 97 10/13/19 21:00 Nasal Cannula 2.0 10/13/19 20:43 73 127/75 10/13/19 20:00 98.7 74 19 127/75 (92) 95 10/13/19 20:00 73 10/13/19 19:40 77 20 99 Nasal Cannula 2.0 28 74 20 97 10/13/19 19:39 97 Nasal Cannula 2.0 28 10/13/19 17:16 125/80 10/13/19 17:16 125/80 10/13/19 16:00 97.5 80 20 125/80 (95) 95 10/13/19 16:00 81 Intake and Output 10/13/19 10/14/19 19:00 07:00 Intake Total 800 ml 508.9 ml Output Total 500 ml Balance 800 ml 8.9 ml Intake Oral 800 ml 360 ml IV Total 148.9 ml Output Urine Total 500 ml # Voids 3 2 Laboratory Tests 10/14/19 05:27: Troponin I 0.104H, Pro-B-Type Natriuretic Peptide 4125H Height (Feet): 5 Height (Inches): 8.00 Weight (Pounds): 215 Objective GENERAL: Well-developed male, at present, comfortable. but still weak HEENT: Negative. Extraocular movements are grossly intact. NECK: Supple. LUNGS: With significantly reduced breath sounds at the left lung base. Otherwise clear. CARDIAC: S1, S2, overall irregularly irregular. The patient has a pacemaker, left chest wall. ABDOMEN: Soft, nontender. EXTREMITIES: No cyanosis, clubbing, or edema. Vasile Castle MD Oct 14, 2019 15:55
--- NOTE | 2019-10-14 17:17 | Cardiac Electrophysiology PN ---
Assessment/Plan Assessment/Plan 1. Non-ST elevation myocardial infarction type 2 The patient, however, also has renal failure and this might be due to renal failure. We will keep the patient on aspirin, beta-sherlyn, and statin. Troponin is low level and coming down. No CP. 2. History of severe cardiomyopathy. An echocardiogram EF 55% Continue Coreg 25 mg b.i.d. and Lasix to 40 mg IV b.i.d. hydralazine and nitrates 3. Chronic atrial fibrillation, rate is controlled on Xarelto 15 mg daily, and he is also on Coreg 25 mg b.i.d. 4. Status post [facility] biventricular defibrillator and recent generator change. We will interrogate device for further evaluation. 5. Chronic obstructive pulmonary disease and pneumonia. Management by Dr. Castle and Dr. Bloom, on IV antibiotics. Subjective Subjective Feeling better. RN at bedside Objective Last 24 Hour Vital Signs Date Time Temp Pulse Resp B/P (MAP) Pulse Ox O2 Delivery O2 Flow Rate FiO2 10/14/19 17:05 109/64 10/14/19 17:05 109/64 10/14/19 16:00 97.5 80 20 109/64 (79) 93 10/14/19 16:00 74 10/14/19 15:09 71 20 98 Nasal Cannula 2.0 28 73 20 97 10/14/19 12:37 114/67 10/14/19 12:00 78 10/14/19 12:00 97.7 78 20 114/67 (83) 93 10/14/19 09:08 74 112/74 10/14/19 09:08 112/74 10/14/19 09:00 Nasal Cannula 2.0 10/14/19 08:20 74 20 98 Nasal Cannula 2.0 28 76 20 93 10/14/19 08:19 93 Room Air 21 10/14/19 08:00 97.9 76 20 112/74 (87) 93 10/14/19 08:00 73 10/14/19 05:23 110/60 10/14/19 04:00 98.2 72 18 110/60 (77) 98 10/14/19 04:00 84 10/14/19 00:56 99/60 10/14/19 00:00 97.3 75 18 99/60 (73) 99 10/14/19 00:00 75 10/13/19 23:17 76 18 99 Nasal Cannula 2.0 28 73 18 97 10/13/19 21:00 Nasal Cannula 2.0 10/13/19 20:43 73 127/75 10/13/19 20:00 98.7 74 19 127/75 (92) 95 10/13/19 20:00 73 10/13/19 19:40 77 20 99 Nasal Cannula 2.0 28 74 20 97 10/13/19 19:39 97 Nasal Cannula 2.0 28 10/13/19 17:16 125/80 10/13/19 17:16 125/80 Intake and Output 10/13/19 10/14/19 19:00 07:00 Intake Total 800 ml 508.9 ml Output Total 500 ml Balance 800 ml 8.9 ml Intake Oral 800 ml 360 ml IV Total 148.9 ml Output Urine Total 500 ml # Voids 3 2 Laboratory Tests Test 10/14/19 05:27 Troponin I 0.104 ng/mL (0.000-0.056) Pro-B-Type Natriuretic Peptide 4125 pg/mL (0-125) H Objective HEAD AND NECK: Positive JVD, but no carotid bruits. LUNGS: Coarse rhonchi. CARDIOVASCULAR: Shows irregular S1 and S2 with no gallop. Defibrillator in left subclavian. ABDOMEN: Soft. EXTREMITIES: 1+ pitting edema. Hong Leon MD Oct 14, 2019 17:17
--- NOTE | 2019-10-14 19:36 | NUR ---
NURSE NOTES: Received report from VENTURA Rodrigues. Patient is in bed, awake, alert and responsive. Breathing regular and unlabored, currently getting a breathing treatment by the RT. Patient denies any pain or discomfort at this time. Patient is concerned about having Lasix during night time due to excess amount of urination, advised patient the need for Lasix and patient agreed to take it. IV access on the RAC, 20G, currently saline locked. Patient is ambulatory with a steady gait, but observation of ambulation is preferred. Bed is in lowest position, breaks engaged, and call light is within reach at all times. Patient is currently stable, all other needs attended to, will continue to monitor.
[2019-10-14] MEDS: Atorvastatin 20mg tab ORAL SCH (21:10)
[2019-10-15] VITALS: BP 120/74
[2019-10-15] MEDS: Albuterol ud Inhalation HHN SCH ×6 (03:00→23:00)
[2019-10-15 04:00] VITALS: BP 113/69
[2019-10-15] MEDS: HydrALAZINE 10mg Tab ORAL SCH ×4 (05:48→17:15)
[2019-10-15] MEDS: Piperacillin/Tazobactam 3.375 GM in NS 110 ML IVPB SCH (05:48)
[2019-10-15] MEDS: NovoLOG Insulin Flexpen SUBQ SCH ×4 (05:51→22:03)
--- NOTE | 2019-10-15 07:07 | NUR ---
HAND-OFF: Report given to VENTURA Rodrigues. Patient in stable condition.
[2019-10-15 07:12] LABS: ALANINE AMINOTRANSFERASE 82 U/L (12-78); ALBUMIN 1.8 G/DL (3.4-5.0); ALBUMIN/GLOBULIN RATIO 0.4 (1.0-2.7); ALKALINE PHOSPHATASE 144 U/L (46-116); ANION GAP 8 mmol/L (5-15); ASPARTATE AMINO TRANSFERASE 40 U/L (15-37); BILIRUBIN,TOTAL 0.7 MG/DL (0.2-1.0); BLOOD UREA NITROGEN 47 mg/dL (7-18); CALCIUM 7.9 MG/DL (8.5-10.1); CARBON DIOXIDE 28 MMOL/L (21-32); CHLORIDE 100 MMOL/L (98-107); CREATININE 2.1 MG/DL (0.55-1.30); POTASSIUM 3.6 MMOL/L (3.5-5.1); SODIUM 135 MMOL/L (136-145)
[2019-10-15 08:00] VITALS: BP 122/71
--- NOTE | 2019-10-15 08:28 | General Progress Note ---
Assessment/Plan Assessment/Plan: IMPRESSION: 1. Pneumonia, with parapneumonic effusion. 2. History of CHF. 3. Chronic renal failure. 4. Hyponatremia, hypokalemia. 5. Elevated troponin, possible demand ischemia. 6. Elevated natriuretic peptide. 7. Atrial fibrillation, paroxysmal. PLAN care noted on lasix cards and ID noted oxygen as needed strongly recommend tap will add CPT for now repeat CXR today and discuss son to discuss with him the need for tap and will let me know impression, plan, and exam edited and reviewed in detail care discussed with RN Subjective Allergies: Coded Allergies: No Known Allergies (Unverified , 10/11/19) Subjective care noted overall no change CT chest reviewed d/w family in detail Objective Last 24 Hour Vital Signs Date Time Temp Pulse Resp B/P (MAP) Pulse Ox O2 Delivery O2 Flow Rate FiO2 10/15/19 08:09 97 Nasal Cannula 3.0 32 10/15/19 05:48 113/69 10/15/19 04:00 76 10/15/19 04:00 97.9 87 20 113/69 (84) 98 10/15/19 00:00 98.0 80 16 120/74 (89) 96 10/15/19 00:00 75 10/14/19 21:10 74 121/62 10/14/19 21:00 Nasal Cannula 2.0 10/14/19 20:00 97.6 74 16 121/62 (81) 95 10/14/19 20:00 77 10/14/19 19:29 88 20 97 Room Air 21 86 20 95 10/14/19 19:27 95 Room Air 21 10/14/19 18:02 97.5 10/14/19 17:05 109/64 10/14/19 17:05 109/64 10/14/19 16:00 97.5 80 20 109/64 (79) 93 10/14/19 16:00 74 10/14/19 15:09 71 20 98 Nasal Cannula 2.0 28 73 20 97 10/14/19 12:37 114/67 10/14/19 12:00 78 10/14/19 12:00 97.7 78 20 114/67 (83) 93 10/14/19 09:08 74 112/74 10/14/19 09:08 112/74 10/14/19 09:00 Nasal Cannula 2.0 Intake and Output 10/14/19 10/15/19 19:00 07:00 Intake Total 800 ml 1000 ml Output Total 900 ml 1400 ml Balance -100 ml -400 ml Intake Oral 800 ml 800 ml Other 200 ml Output Urine Total 900 ml 1400 ml # Voids 3 5 Laboratory Tests 10/15/19 06:30: Sodium Level 135L, Potassium Level 3.6, Chloride Level 100, Carbon Dioxide Level 28, Anion Gap 8, Blood Urea Nitrogen 47H, Creatinine 2.1H, Estimat Glomerular Filtration Rate 32.1, Glucose Level 271H, Calcium Level 7.9L, Total Bilirubin 0.7, Aspartate Amino Transf (AST/SGOT) 40H, Alanine Aminotransferase ( ALT/SGPT) 82H, Alkaline Phosphatase 144H, Total Protein 6.1L, Albumin 1.8L, Globulin 4.3, Albumin/Globulin Ratio 0.4L, Random Vancomycin Level 12.1 Height (Feet): 5 Height (Inches): 8.00 Weight (Pounds): 215 Objective GENERAL: Well-developed male, at present, comfortable. but still weak HEENT: Negative. Extraocular movements are grossly intact. NECK: Supple. LUNGS: With significantly reduced breath sounds at the left lung base. Otherwise clear. CARDIAC: S1, S2, overall irregularly irregular. The patient has a pacemaker, left chest wall. ABDOMEN: Soft, nontender. EXTREMITIES: No cyanosis, clubbing, or edema. Vasile Castle MD Oct 15, 2019 08:28
--- NOTE | 2019-10-15 08:35 | NUR ---
RADIOLOGY: PCXR COMPLETED 0800HRS. NF
[2019-10-15] MEDS: Aspirin EC 81mg tab ORAL SCH ×2 (09:00→09:23)
[2019-10-15] MEDS: Xarelto 15mg tab ORAL SCH (09:23)
[2019-10-15] MEDS: Azithromycin 250mg tab ORAL SCH (09:23)
[2019-10-15] MEDS: Carvedilol 25mg Tab ORAL SCH ×2 (09:24→21:38)
--- NOTE | 2019-10-15 09:42 | Cardiac Electrophysiology PN ---
Assessment/Plan Assessment/Plan 1. Non-ST elevation myocardial infarction type 2 The patient, however, also has renal failure and this might be due to renal failure. On aspirin, beta-sherlyn, and statin. Troponin is low level and coming down. No CP. 2. History of severe cardiomyopathy. EF improved to 55% with biv pacing Continue Coreg 25 mg b.i.d. and hydralazine and nitrates Change Lasix to 80 mg IV daily. CXR today. May need thoracentesis 3. Chronic atrial fibrillation, on Xarelto 15 mg daily and Coreg 25 mg b.i.d. 4. Status post [facility] biventricular defibrillator and recent generator change. Interrogated and showed Nl Fx 5. Chronic obstructive pulmonary disease and pneumonia. Management by Dr. Castle and Dr. Bloom, on IV antibiotics. 6. CKD Cr 2.4 DW RN Subjective Subjective Feeling better with diuresis. Lasix changed to 80 iv daily. CXR today done. May need thoracentesis. RN at bedside Objective Last 24 Hour Vital Signs Date Time Temp Pulse Resp B/P (MAP) Pulse Ox O2 Delivery O2 Flow Rate FiO2 10/15/19 09:24 79 122/71 10/15/19 09:23 122/71 10/15/19 08:09 79 20 99 Nasal Cannula 3.0 28 78 20 97 10/15/19 08:09 97 Nasal Cannula 3.0 32 10/15/19 08:00 98.0 73 18 122/71 (88) 98 10/15/19 05:48 113/69 10/15/19 04:00 76 10/15/19 04:00 97.9 87 20 113/69 (84) 98 10/15/19 00:00 98.0 80 16 120/74 (89) 96 10/15/19 00:00 75 10/14/19 21:10 74 121/62 10/14/19 21:00 Nasal Cannula 2.0 10/14/19 20:00 97.6 74 16 121/62 (81) 95 10/14/19 20:00 77 10/14/19 19:29 88 20 97 Room Air 21 86 20 95 10/14/19 19:27 95 Room Air 21 10/14/19 18:02 97.5 10/14/19 17:05 109/64 1/30/20 17:05 109/64 10/14/19 16:00 97.5 80 20 109/64 (79) 93 10/14/19 16:00 74 10/14/19 15:09 71 20 98 Nasal Cannula 2.0 28 73 20 97 10/14/19 12:37 114/67 10/14/19 12:00 78 10/14/19 12:00 97.7 78 20 114/67 (83) 93 Intake and Output 10/14/19 10/15/19 19:00 07:00 Intake Total 800 ml 1000 ml Output Total 900 ml 1400 ml Balance -100 ml -400 ml Intake Oral 800 ml 800 ml Other 200 ml Output Urine Total 900 ml 1400 ml # Voids 3 5 Laboratory Tests Test 10/15/19 06:30 Sodium Level 135 MMOL/L (136-145) L Potassium Level 3.6 MMOL/L (3.5-5.1) Chloride Level 100 MMOL/L (98-107) Carbon Dioxide Level 28 MMOL/L (21-32) Anion Gap 8 mmol/L (5-15) Blood Urea Nitrogen 47 mg/dL (7-18) H Creatinine 2.1 MG/DL (0.55-1.30) H Estimat Glomerular Filtration Rate 32.1 mL/min (>60) Glucose Level 271 MG/DL (74-106) H Calcium Level 7.9 MG/DL (8.5-10.1) L Total Bilirubin 0.7 MG/DL (0.2-1.0) Aspartate Amino Transf (AST/SGOT) 40 U/L (15-37) H Alanine Aminotransferase (ALT/SGPT) 82 U/L (12-78) H Alkaline Phosphatase 144 U/L (46-116) H Total Protein 6.1 G/DL (6.4-8.2) L Albumin 1.8 G/DL (3.4-5.0) L Globulin 4.3 g/dL Albumin/Globulin Ratio 0.4 (1.0-2.7) L Random Vancomycin Level 12.1 ug/mL Objective HEAD AND NECK: Positive JVD, but no carotid bruits. LUNGS: Coarse rhonchi. CARDIOVASCULAR: Irregular S1 and S2 with no gallop. Defibrillator in left subclavian. ABDOMEN: Soft. EXTREMITIES: 1+ pitting edema. Hong Leon MD Oct 15, 2019 09:42
--- NOTE | 2019-10-15 10:23 | Infectious Diseases Prog Note ---
Assessment/Plan Assessment/Plan antibiotics : vancomycin iv, zosyn, azithromycin A 1. pneumonia 2, pleural effusion 3. diabetes mellitus 4. hypertension 5. CHF P 1. d/c vancomycin iv, zosyn, azithromycin 2. start levoquin 3. sputum cultures Subjective Constitutional: Denies: fever, chills Respiratory: Reports: dry cough - decreased Gastrointestinal/Abdominal: Reports: nausea; Denies: vomiting, diarrhea Musculoskeletal: Reports: pain - on coughing Allergies: Coded Allergies: No Known Allergies (Unverified , 10/11/19) Objective Vital Signs Last 24 Hour Vital Signs Date Time Temp Pulse Resp B/P (MAP) Pulse Ox O2 Delivery O2 Flow Rate FiO2 10/15/19 09:24 79 122/71 10/15/19 09:23 122/71 10/15/19 08:09 79 20 99 Nasal Cannula 3.0 28 78 20 97 10/15/19 08:09 97 Nasal Cannula 3.0 32 10/15/19 08:00 98.0 73 18 122/71 (88) 98 10/15/19 05:48 113/69 10/15/19 04:00 76 10/15/19 04:00 97.9 87 20 113/69 (84) 98 10/15/19 00:00 98.0 80 16 120/74 (89) 96 10/15/19 00:00 75 10/14/19 21:10 74 121/62 10/14/19 21:00 Nasal Cannula 2.0 10/14/19 20:00 97.6 74 16 121/62 (81) 95 10/14/19 20:00 77 10/14/19 19:29 88 20 97 Room Air 21 86 20 95 10/14/19 19:27 95 Room Air 21 10/14/19 18:02 97.5 10/14/19 17:05 109/64 10/14/19 17:05 109/64 10/14/19 16:00 97.5 80 20 109/64 (79) 93 10/14/19 16:00 74 10/14/19 15:09 71 20 98 Nasal Cannula 2.0 28 73 20 97 10/14/19 12:37 114/67 10/14/19 12:00 78 10/14/19 12:00 97.7 78 20 114/67 (83) 93 Height (Feet): 5 Height (Inches): 8.00 Weight (Pounds): 215 Respiratory/Chest: lungs clear Cardiovascular: normal rate, regular rhythm Abdomen: soft, non tender Extremities: no edema Laboratory Tests Test 10/15/19 06:30 Sodium Level 135 MMOL/L (136-145) L Potassium Level 3.6 MMOL/L (3.5-5.1) Chloride Level 100 MMOL/L (98-107) Carbon Dioxide Level 28 MMOL/L (21-32) Anion Gap 8 mmol/L (5-15) Blood Urea Nitrogen 47 mg/dL (7-18) H Creatinine 2.1 MG/DL (0.55-1.30) H Estimat Glomerular Filtration Rate 32.1 mL/min (>60) Glucose Level 271 MG/DL (74-106) H Calcium Level 7.9 MG/DL (8.5-10.1) L Total Bilirubin 0.7 MG/DL (0.2-1.0) Aspartate Amino Transf (AST/SGOT) 40 U/L (15-37) H Alanine Aminotransferase (ALT/SGPT) 82 U/L (12-78) H Alkaline Phosphatase 144 U/L (46-116) H Total Protein 6.1 G/DL (6.4-8.2) L Albumin 1.8 G/DL (3.4-5.0) L Globulin 4.3 g/dL Albumin/Globulin Ratio 0.4 (1.0-2.7) L Random Vancomycin Level 12.1 ug/mL Current Medications Medications (Trade) Dose Ordered Sig/Trudy Route PRN Reason Start Time Stop Time Status Last Admin Dose Admin Acetaminophen (Tylenol) 650 mg Q4H PRN ORAL Mild Pain/Temp > 100.5 10/11/19 18:00 11/10/19 17:59 10/15/19 05:49 Al Hydroxide/Mg Hydroxide (Mylanta) 30 ml QIDPRN PRN ORAL Constipation 10/11/19 18:00 11/10/19 17:59 Albuterol Sulfate (Proventil) 2.5 mg Q4H PRN HHN Shortness of Breath 10/11/19 18:00 10/16/19 17:59 Albuterol Sulfate (Proventil) 2.5 mg Q4HRT HHN 10/11/19 19:00 10/16/19 18:59 10/15/19 07:42 Aspirin (Ecotrin) 81 mg DAILY ORAL 10/14/19 09:00 11/13/19 08:59 Atorvastatin Calcium (Lipitor) 20 mg BEDTIME ORAL 10/13/19 21:00 11/12/19 20:59 10/14/19 21:10 Azithromycin (Zithromax) 500 mg DAILY ORAL 10/11/19 20:00 10/18/19 19:59 10/15/19 09:23 Carvedilol (Coreg) 25 mg EVERY 12 HOURS ORAL 10/13/19 21:00 11/11/19 08:59 10/15/19 09:24 Dextrose (Dextrose 50%) 25 ml Q30M PRN IV Hypoglycemia 10/11/19 18:00 11/10/19 17:59 Dextrose (Dextrose 50%) 50 ml Q30M PRN IV Hypoglycemia 10/11/19 18:00 11/10/19 17:59 Furosemide (Lasix) 80 mg DAILY IV 10/15/19 09:00 11/12/19 20:59 10/15/19 09:24 Guaifenesin (Robitussin) 300 mg Q4H PRN ORAL For Cough 10/13/19 10:27 11/12/19 10:26 10/14/19 17:05 Hydralazine HCl (Apresoline) 10 mg Q6HR ORAL 10/13/19 18:00 11/12/19 17:59 10/15/19 05:48 Insulin Aspart (NovoLOG) BEFORE MEALS AND HS SUBQ 10/11/19 21:00 11/10/19 20:59 10/15/19 05:51 Isosorbide Dinitrate (Isordil) 10 mg BID ORAL 10/13/19 18:00 11/12/19 17:59 10/15/19 09:23 Pantoprazole (Protonix) 40 mg DAILY ORAL 10/12/19 09:00 11/11/19 08:59 10/15/19 09:23 Piperacillin Sod/ Tazobactam Sod 3.375 gm/Sodium Chloride 110 ml @ 27.5 mls/hr Q8HR IVPB 10/11/19 22:00 10/18/19 21:59 10/15/19 05:48 Rivaroxaban (Xarelto) 15 mg DAILY ORAL 10/13/19 09:00 11/11/19 08:59 10/15/19 09:23 Vancomycin HCl (Vanco rx to dose) 1 ea DAILY PRN MISC Per rx protocol 10/11/19 18:00 11/10/19 17:59 Vancomycin/Sodium Chloride 275 ml @ 137.5 mls/ hr ONCE ONCE IVPB 10/15/19 12:00 10/15/19 13:59 Mari Bloom MD Oct 15, 2019 10:23
[2019-10-15] MEDS ORDERED: Levofloxacin 500mg tab ORAL ONE (10:30)
[2019-10-15 12:00] VITALS: BP 122/73
[2019-10-15] MEDS ORDERED: Vancomycin 1.5gm/NS Premix q24h IVPB ONE (12:00)
--- NOTE | 2019-10-15 12:06 | Diagnostic Imaging Report ---
Indication: Dyspnea Comparison: 10/13/2019 A single view chest radiograph was obtained. Findings: There is evidence of CHF with prominent pulmonary vessels and interstitial densities. In addition there is evidence of a left pleural effusion and confluent dense left basilar opacification which may be pneumonia. Findings are unchanged. Heart is enlarged. Pacemaker again noted on the left. IMPRESSION: No change from the prior exam. CHF and the left pleural effusion.. Superimposed left basilar pneumonia could be present.
[2019-10-15 16:01] VITALS: BP 129/81
--- NOTE | 2019-10-15 19:30 | NUR ---
NURSE NOTES: Received report from VENTURA Rodrigues. Patient is in bed, awake and responsive. Breathing regular and unlabored with no s/s of SOB noted at this time. Patient is currently on a NC @2L. Patient is c/o a slight headache, will administer PRN Tylenol as ordered. No other s/s of discomfort noted at this time. Patient requested RT for scheduled breathing treatment, RT called, breathing treatment provided. Bed is in lowest position, breaks engaged, and call light is within reach at all times. All other needs attended to, patient remains stable, will continue to monitor.
[2019-10-15 20:00] VITALS: BP 142/79
[2019-10-15] MEDS: Atorvastatin 20mg tab ORAL SCH (21:38)
[2019-10-16] VITALS: BP 112/70
[2019-10-16] MEDS: Albuterol ud Inhalation HHN SCH ×5 (03:38→23:07)
[2019-10-16 04:00] VITALS: BP 114/68
[2019-10-16] MEDS: HydrALAZINE 10mg Tab ORAL SCH ×5 (06:05→23:57)
[2019-10-16] MEDS: NovoLOG Insulin Flexpen SUBQ SCH ×4 (06:07→21:16)
--- NOTE | 2019-10-16 07:44 | NUR ---
HAND-OFF: Report given to VENTURA Hall. Plan of care endorsed, patient remains stable.
--- NOTE | 2019-10-16 07:45 | NUR ---
NURSE NOTES: Received report from Rowena/RN, Patient is awake and alert, sitting on side of the bed, eating breakfast. On 2L nasal canula, no acute distress/SOB noted. Able to make needs known, Denies pain at this time. IV on right FA patent, no infiltration or bleeding noted. Bed in low position and locked, Call light within reach, Encouraged to use call light when needed. Will continue plan of care.
--- NOTE | 2019-10-16 07:58 | General Progress Note ---
Assessment/Plan Assessment/Plan: IMPRESSION: 1. Pneumonia, with parapneumonic effusion. 2. History of CHF. 3. Chronic renal failure. 4. Hyponatremia, hypokalemia. 5. Elevated troponin, possible demand ischemia. 6. Elevated natriuretic peptide. 7. Atrial fibrillation, paroxysmal. PLAN care noted on lasix cards and ID noted oxygen as needed strongly recommend tap will add CPT for now proceed with tap will need to hold Xarelto prior to procedure impression, plan, and exam edited and reviewed in detail care discussed with RN Subjective Allergies: Coded Allergies: No Known Allergies (Unverified , 10/11/19) Subjective care noted d/w family and want to pursue tap CT chest reviewed feels stronger Objective Last 24 Hour Vital Signs Date Time Temp Pulse Resp B/P (MAP) Pulse Ox O2 Delivery O2 Flow Rate FiO2 10/16/19 07:53 96 Nasal Cannula 3.0 32 10/16/19 07:52 75 16 97 Nasal Cannula 3.0 32 78 16 94 10/16/19 06:05 114/68 10/16/19 04:00 97.7 73 18 114/68 (83) 98 10/16/19 04:00 73 10/16/19 03:38 73 18 98 Nasal Cannula 3.0 32 74 20 94 10/16/19 00:00 74 10/16/19 00:00 97.7 73 16 112/70 (84) 98 10/15/19 21:38 73 142/79 10/15/19 21:00 Nasal Cannula 2.0 10/15/19 20:00 97.3 73 16 142/79 (100) 98 10/15/19 20:00 73 10/15/19 19:46 97 Nasal Cannula 3.0 32 10/15/19 19:30 83 19 97 Nasal Cannula 3.0 32 75 18 95 10/15/19 17:15 129/81 10/15/19 17:15 129/81 10/15/19 16:01 98.1 79 19 129/81 (97) 98 10/15/19 16:00 73 10/15/19 15:58 84 20 99 Nasal Cannula 3.0 28 77 20 94 10/15/19 12:05 79 20 99 Nasal Cannula 3.0 28 74 20 94 10/15/19 12:00 70 10/15/19 12:00 97.7 75 18 122/73 (89) 98 1/31/20 11:50 122/71 10/15/19 10:56 Nasal Cannula 2.0 10/15/19 09:24 79 122/71 10/15/19 09:23 122/71 10/15/19 08:09 79 20 99 Nasal Cannula 3.0 28 78 20 97 10/15/19 08:09 97 Nasal Cannula 3.0 32 10/15/19 08:00 74 10/15/19 08:00 98.0 73 18 122/71 (88) 98 Intake and Output 10/15/19 10/16/19 19:00 07:00 Intake Total 900 ml Balance 900 ml Other 900 ml # Voids 2 Laboratory Tests 10/16/19 05:17: Random Vancomycin Level 7.0 Height (Feet): 5 Height (Inches): 8.00 Weight (Pounds): 215 Objective GENERAL: Well-developed male, at present, comfortable. but still weak HEENT: Negative. Extraocular movements are grossly intact. NECK: Supple. LUNGS: With significantly reduced breath sounds at the left lung base. Otherwise clear. CARDIAC: S1, S2, overall irregularly irregular. The patient has a pacemaker, left chest wall. ABDOMEN: Soft, nontender. EXTREMITIES: No cyanosis, clubbing, or edema. Vasile Castle MD Oct 16, 2019 07:58
[2019-10-16 08:00] VITALS: BP 125/71
[2019-10-16] MEDS: Carvedilol 25mg Tab ORAL SCH ×2 (09:09→21:01)
[2019-10-16] MEDS: Aspirin EC 81mg tab ORAL SCH (09:09)
[2019-10-16] MEDS: Xarelto 15mg tab ORAL SCH (09:09)
[2019-10-16 12:00] VITALS: BP 113/54
--- NOTE | 2019-10-16 12:20 | Cardiac Electrophysiology PN ---
Assessment/Plan Assessment/Plan 1. NSTEMI type 2 might be due to renal failure. On aspirin, beta-sherlyn, and statin. Troponin is low level and coming down. No CP. 2. History of severe cardiomyopathy. EF 55% with biv pacing Continue Coreg 25 mg b.i.d. and hydralazine, nitrates and Lasix to 80 mg IV daily. May need thoracentesis 3. Chronic atrial fibrillation, on Xarelto 15 mg daily and Coreg 25 mg b.i.d. 4. Status post [facility] biventricular defibrillator and recent generator change. Interrogated and showed Nl Fx 5. Chronic obstructive pulmonary disease and pneumonia. Management by Dr. Castle and Dr. Bloom, on IV antibiotics. 6. CKD Cr 2.4 DW RN Subjective Subjective On Lasix 80 iv daily. CXR today done. Awaiting thoracentesis. RN at bedside Objective Last 24 Hour Vital Signs Date Time Temp Pulse Resp B/P (MAP) Pulse Ox O2 Delivery O2 Flow Rate FiO2 10/16/19 12:04 113/54 10/16/19 11:16 77 16 98 Nasal Cannula 3.0 32 76 12 95 10/16/19 09:10 125/71 10/16/19 09:09 72 125/71 10/16/19 09:00 Nasal Cannula 2.0 10/16/19 09:00 73 10/16/19 08:00 97.9 72 20 125/71 (89) 97 10/16/19 07:53 96 Nasal Cannula 3.0 32 10/16/19 07:52 75 16 97 Nasal Cannula 3.0 32 78 16 94 10/16/19 06:05 114/68 10/16/19 04:00 97.7 73 18 114/68 (83) 98 10/16/19 04:00 73 10/16/19 03:38 73 18 98 Nasal Cannula 3.0 32 74 20 94 10/16/19 00:00 74 10/16/19 00:00 97.7 73 16 112/70 (84) 98 10/15/19 21:38 73 142/79 10/15/19 21:00 Nasal Cannula 2.0 10/15/19 20:00 97.3 73 16 142/79 (100) 98 10/15/19 20:00 73 10/15/19 19:46 97 Nasal Cannula 3.0 32 10/15/19 19:30 83 19 97 Nasal Cannula 3.0 32 75 18 95 10/15/19 17:15 129/81 10/15/19 17:15 129/81 10/15/19 16:01 98.1 79 19 129/81 (97) 98 10/15/19 16:00 73 10/15/19 15:58 84 20 99 Nasal Cannula 3.0 28 77 20 94 Intake and Output 10/15/19 10/16/19 19:00 07:00 Intake Total 900 ml Balance 900 ml Other 900 ml # Voids 2 Laboratory Tests Test 10/16/19 05:17 Random Vancomycin Level 7.0 ug/mL Objective HEAD AND NECK: Positive JVD, but no carotid bruits. LUNGS: Coarse rhonchi. CARDIOVASCULAR: Irregular S1 and S2 with no gallop. Defibrillator in left subclavian. ABDOMEN: Soft. EXTREMITIES: 1+ pitting edema. Hong Leon MD Oct 16, 2019 12:20
[2019-10-16] MEDS ORDERED: 1/2 NS 1000ml IV ONE (14:06)
[2019-10-16] MEDS ORDERED: NS 275ml ONE ×2 (14:06)
[2019-10-16] MEDS ORDERED: Tubing IV Secondary IV ONE ×2 (14:06)
[2019-10-16 16:00] VITALS: BP 123/67
--- NOTE | 2019-10-16 19:30 | NUR ---
NURSE NOTES: Received patient from Isabel RN. Patient is alert and oriented x4. On 2L NC, no signs of respiratory distress. BLE 2+ pitting edema. Bed in low position, locked, call light within reach.
--- NOTE | 2019-10-16 19:39 | NUR ---
HAND-OFF: Report given to Elijah/RN, Patient is in stable condition, Endorsed plan of care.
[2019-10-16 20:00] VITALS: BP 122/73
[2019-10-16] MEDS ORDERED: Albuterol ud Inhalation HHN PRN (20:15)
[2019-10-16] MEDS: Atorvastatin 20mg tab ORAL SCH (21:00)
[2019-10-17] VITALS: BP 121/54
[2019-10-17] MEDS: Albuterol ud Inhalation HHN SCH ×6 (03:41→23:00)
[2019-10-17 04:00] VITALS: BP 122/72
[2019-10-17] MEDS: HydrALAZINE 10mg Tab ORAL SCH ×4 (05:59→23:31)
[2019-10-17] MEDS: NovoLOG Insulin Flexpen SUBQ SCH ×4 (06:02→21:32)
--- NOTE | 2019-10-17 07:01 | NUR ---
NURSE NOTES: Received report from Elijah/RN, Patient is asleep, lying semi-herrera's, resting comfortably. On 2L nasal canula, no acute distress/SOB noted. Able to make needs known. IV on right FA patent, no infiltration or bleeding noted. Bed in low position and locked, Call light within reach. Will continue plan of care.
[2019-10-17 08:00] VITALS: BP 123/57
[2019-10-17] MEDS: Aspirin EC 81mg tab ORAL SCH ×2 (08:48→08:54)
[2019-10-17] MEDS: Carvedilol 25mg Tab ORAL SCH ×2 (08:49→21:29)
--- NOTE | 2019-10-17 09:26 | Diagnostic Imaging Report ---
EXAM: XR Chest, 1 View CLINICAL HISTORY: PLEFF TECHNIQUE: Frontal view of the chest. COMPARISON: Chest x-ray 10/15/19 FINDINGS: Lungs: Slightly worsening left lung opacity may be a combination of pleural effusion with atelectasis/consolidation. Similar right hilar vascular congestion. Pleural space: See above. No pneumothorax. Heart: Cardiomegaly. Mediastinum: Unremarkable. Bones/joints: Unremarkable. Tubes, lines and devices: Cardiac pacemaker. IMPRESSION: Slightly worsening left lung opacity may be a combination of pleural effusion with atelectasis/consolidation.
--- NOTE | 2019-10-17 10:25 | General Progress Note ---
Assessment/Plan Assessment/Plan: IMPRESSION: 1. Pneumonia, with parapneumonic effusion. 2. History of CHF. 3. Chronic renal failure. 4. Hyponatremia, hypokalemia. 5. Elevated troponin, possible demand ischemia. 6. Elevated natriuretic peptide. 7. Atrial fibrillation, paroxysmal. PLAN care noted on lasix cards and ID noted oxygen as needed strongly recommend tap; proceed in am will add CPT for now will need to hold Xarelto prior to procedure impression, plan, and exam edited and reviewed in detail care discussed with RN Subjective Allergies: Coded Allergies: No Known Allergies (Unverified , 10/11/19) Subjective care noted Xarelto on hold CT chest reviewed CXR worsening feels stronger but not improved Objective Last 24 Hour Vital Signs Date Time Temp Pulse Resp B/P (MAP) Pulse Ox O2 Delivery O2 Flow Rate FiO2 10/17/19 08:49 75 123/57 10/17/19 08:49 123/57 10/17/19 08:00 98.4 75 20 123/57 (79) 98 10/17/19 07:13 95 Nasal Cannula 3.0 32 10/17/19 07:13 74 19 99 Nasal Cannula 2.0 28 71 16 95 10/17/19 05:59 128/67 10/17/19 04:00 97.5 73 18 122/72 (89) 98 10/17/19 04:00 73 10/17/19 03:41 79 18 98 Nasal Cannula 2.0 28 76 18 94 10/17/19 00:00 73 10/17/19 00:00 96.3 76 20 121/54 (76) 97 10/16/19 23:57 121/54 10/16/19 23:04 85 18 100 Nasal Cannula 3.0 32 82 18 98 10/16/19 23:04 96 Nasal Cannula 3.0 32 10/16/19 23:04 82 18 98 Nasal Cannula 3.0 32 10/16/19 21:30 98.2 10/16/19 21:01 73 122/73 10/16/19 21:00 Nasal Cannula 2.0 10/16/19 20:00 75 10/16/19 20:00 98.2 73 16 122/73 (89) 98 10/16/19 17:18 123/67 10/16/19 17:17 123/67 2/1/20 16:00 97.9 73 20 123/67 (85) 98 10/16/19 16:00 73 10/16/19 12:04 113/54 10/16/19 12:00 71 10/16/19 12:00 97.9 72 20 113/54 (73) 97 10/16/19 11:16 77 16 98 Nasal Cannula 3.0 32 76 12 95 Intake and Output 10/16/19 10/17/19 19:00 07:00 Intake Total 800 ml Balance 800 ml Intake Oral 800 ml # Voids 4 3 Labs Test 10/15/19 06:30 10/16/19 05:17 Sodium Level 135 MMOL/L (136-145) Potassium Level 3.6 MMOL/L (3.5-5.1) Chloride Level 100 MMOL/L (98-107) Carbon Dioxide Level 28 MMOL/L (21-32) Anion Gap 8 mmol/L (5-15) Blood Urea Nitrogen 47 mg/dL (7-18) Creatinine 2.1 MG/DL (0.55-1.30) Estimat Glomerular Filtration Rate 32.1 mL/min (>60) Glucose Level 271 MG/DL (74-106) Calcium Level 7.9 MG/DL (8.5-10.1) Total Bilirubin 0.7 MG/DL (0.2-1.0) Aspartate Amino Transf (AST/SGOT) 40 U/L (15-37) Alanine Aminotransferase (ALT/SGPT) 82 U/L (12-78) Alkaline Phosphatase 144 U/L (46-116) Total Protein 6.1 G/DL (6.4-8.2) Albumin 1.8 G/DL (3.4-5.0) Globulin 4.3 g/dL Albumin/Globulin Ratio 0.4 (1.0-2.7) Random Vancomycin Level 12.1 ug/mL 7.0 ug/mL Height (Feet): 5 Height (Inches): 8.00 Weight (Pounds): 215 Objective GENERAL: Well-developed male, at present, comfortable. but still weak HEENT: Negative. Extraocular movements are grossly intact. NECK: Supple. LUNGS: With significantly reduced breath sounds at the left lung base. Otherwise clear. not improved CARDIAC: S1, S2, overall irregularly irregular. The patient has a pacemaker, left chest wall. ABDOMEN: Soft, nontender. EXTREMITIES: No cyanosis, clubbing, or edema. nonfocal and weak Vasile Castle MD Oct 17, 2019 10:25
[2019-10-17 12:02] VITALS: BP 115/56
--- NOTE | 2019-10-17 12:58 | Infectious Diseases Prog Note ---
Assessment/Plan Assessment/Plan A; 1. Possible community-acquired pneumonia versus atypical pneumonia. 2. Diabetes. 3. Hypertension. 4. Leukocytosis, improving. 5. Congestive heart failure. 6. Pleural effusion PLAN: 1. Continue PO Levaquin 2. Positive mycoplasma serology (IgG) 3. will have pleural tap tomorrow Subjective ROS Limited/Unobtainable: No Respiratory: Reports: shortness of breath, dry cough Cardiovascular: Reports: no symptoms Gastrointestinal/Abdominal: Reports: no symptoms Genitourinary: Reports: no symptoms Allergies: Coded Allergies: No Known Allergies (Unverified , 10/11/19) Objective Vital Signs Last 24 Hour Vital Signs Date Time Temp Pulse Resp B/P (MAP) Pulse Ox O2 Delivery O2 Flow Rate FiO2 10/17/19 12:03 115/56 10/17/19 12:02 97.7 74 20 115/56 (75) 98 10/17/19 11:59 80 16 99 Nasal Cannula 2.0 28 87 18 94 10/17/19 09:00 Nasal Cannula 2.0 10/17/19 08:49 75 123/57 10/17/19 08:49 123/57 10/17/19 08:00 98.4 75 20 123/57 (79) 98 10/17/19 08:00 73 10/17/19 07:13 95 Nasal Cannula 3.0 32 10/17/19 07:13 74 19 99 Nasal Cannula 2.0 28 71 16 95 10/17/19 05:59 128/67 10/17/19 04:00 97.5 73 18 122/72 (89) 98 10/17/19 04:00 73 10/17/19 03:41 79 18 98 Nasal Cannula 2.0 28 76 18 94 10/17/19 00:00 73 10/17/19 00:00 96.3 76 20 121/54 (76) 97 10/16/19 23:57 121/54 10/16/19 23:04 85 18 100 Nasal Cannula 3.0 32 82 18 98 10/16/19 23:04 96 Nasal Cannula 3.0 32 10/16/19 23:04 82 18 98 Nasal Cannula 3.0 32 10/16/19 21:30 98.2 10/16/19 21:01 73 122/73 10/16/19 21:00 Nasal Cannula 2.0 10/16/19 20:00 75 2/1/20 20:00 98.2 73 16 122/73 (89) 98 10/16/19 17:18 123/67 10/16/19 17:17 123/67 10/16/19 16:00 97.9 73 20 123/67 (85) 98 10/16/19 16:00 73 Height (Feet): 5 Height (Inches): 8.00 Weight (Pounds): 215 General Appearance: no acute distress HEENT: mucous membranes moist Respiratory/Chest: lungs clear, decreased breath sounds Cardiovascular: normal rate Abdomen: soft, non tender, other - mild legs edema Neurologic/Psychiatric: alert, oriented x 3, responsive Current Medications Medications (Trade) Dose Ordered Sig/Trudy Route PRN Reason Start Time Stop Time Status Last Admin Dose Admin Acetaminophen (Tylenol) 650 mg Q4H PRN ORAL Mild Pain/Temp > 100.5 10/11/19 18:00 11/10/19 17:59 10/16/19 21:00 Al Hydroxide/Mg Hydroxide (Mylanta) 30 ml QIDPRN PRN ORAL Constipation 10/11/19 18:00 11/10/19 17:59 Albuterol Sulfate (Proventil) 2.5 mg Q4H PRN HHN Shortness of Breath 10/16/19 20:15 10/21/19 20:14 Albuterol Sulfate (Proventil) 2.5 mg Q4HRT HHN 10/16/19 23:00 10/21/19 22:59 10/17/19 12:17 Aspirin (Ecotrin) 81 mg DAILY ORAL 10/14/19 09:00 11/13/19 08:59 10/16/19 09:09 Atorvastatin Calcium (Lipitor) 20 mg BEDTIME ORAL 10/13/19 21:00 11/12/19 20:59 10/16/19 21:00 Carvedilol (Coreg) 25 mg EVERY 12 HOURS ORAL 10/13/19 21:00 11/11/19 08:59 10/17/19 08:49 Dextrose (Dextrose 50%) 25 ml Q30M PRN IV Hypoglycemia 10/11/19 18:00 11/10/19 17:59 Dextrose (Dextrose 50%) 50 ml Q30M PRN IV Hypoglycemia 10/11/19 18:00 11/10/19 17:59 Furosemide (Lasix) 80 mg DAILY IV 10/15/19 09:00 11/12/19 20:59 10/17/19 08:48 Guaifenesin (Robitussin) 300 mg Q4H PRN ORAL For Cough 10/13/19 10:27 11/12/19 10:26 10/14/19 17:05 Hydralazine HCl (Apresoline) 10 mg Q6HR ORAL 10/13/19 18:00 11/12/19 17:59 10/17/19 12:03 Insulin Aspart (NovoLOG) BEFORE MEALS AND HS SUBQ 10/11/19 21:00 11/10/19 20:59 10/17/19 12:05 Isosorbide Dinitrate (Isordil) 10 mg BID ORAL 10/13/19 18:00 11/12/19 17:59 10/17/19 08:49 Levofloxacin (Levaquin) 250 mg DAILY ORAL 10/16/19 09:00 10/23/19 08:59 10/17/19 08:49 Pantoprazole (Protonix) 40 mg DAILY ORAL 10/12/19 09:00 11/11/19 08:59 10/17/19 08:48 [place] MD Oct 17, 2019 12:58
[2019-10-17 16:00] VITALS: BP 124/97
[2019-10-17 17:50] LABS: INR 1.2 (0.9-1.1)
--- NOTE | 2019-10-17 19:11 | NUR ---
HAND-OFF: Report given to Elijah/RN, Patient is in stable condition. Endorsed plan of care.
[2019-10-17 20:00] VITALS: BP 158/58
[2019-10-17] MEDS: Atorvastatin 20mg tab ORAL SCH (21:28)
[2019-10-18] VITALS: BP 120/75
[2019-10-18] MEDS: Albuterol ud Inhalation HHN SCH ×6 (03:26→23:30)
[2019-10-18 04:00] VITALS: BP 133/66
[2019-10-18] MEDS: HydrALAZINE 10mg Tab ORAL SCH ×3 (06:06→17:37)
[2019-10-18] MEDS: NovoLOG Insulin Flexpen SUBQ SCH ×4 (06:08→21:20)
--- NOTE | 2019-10-18 07:30 | NUR ---
NURSE NOTES: Received pt from MIKE WHITEHEAD. Pt has NC 2LMP. Pt has intact iv acces RFA 22G SL. No complain of pain at this moment. pt is on continues heart monitoring. all needs attended, bed is locked and is in the lowest position, call light within easy reach. will continue to monitor.
--- NOTE | 2019-10-18 07:31 | Cardiac Electrophysiology PN ---
Assessment/Plan Assessment/Plan 1. NSTEMI type 2 might be due to renal failure. On aspirin, beta-sherlyn, and statin. Troponin is low level and coming down. No CP. 2. History of severe cardiomyopathy. EF 55% with biv pacing Continue Coreg 25 bid, hydralazine, nitrates and Lasix 80 mg IV daily. Left Thoracentesis pending today 3. Chronic atrial fibrillation, on Xarelto 15 mg daily and Coreg 25 mg b.i.d. 4. Status post [facility] biventricular defibrillator and recent generator change. Interrogated and showed Nl Fx 5. Chronic obstructive pulmonary disease and pneumonia. Management by Dr. Castle and Dr. Bloom, on IV antibiotics. 6. CKD Cr 2.1. Actually better despite iv Lasix 80 daily DW RN Subjective Subjective On Lasix 80 iv daily. Awaiting Left sided thoracentesis today. RN at bedside Objective Last 24 Hour Vital Signs Date Time Temp Pulse Resp B/P (MAP) Pulse Ox O2 Delivery O2 Flow Rate FiO2 10/18/19 06:06 124/74 10/18/19 04:00 98.3 73 18 133/66 (88) 96 10/18/19 04:00 73 10/18/19 03:26 76 17 100 Nasal Cannula 2.0 28 74 18 97 10/18/19 00:00 98.9 73 19 120/75 (90) 97 10/18/19 00:00 73 10/17/19 23:38 79 16 100 Room Air 21 77 18 97 10/17/19 23:31 120/75 10/17/19 22:00 72 10/17/19 21:29 74 124/70 10/17/19 21:00 Nasal Cannula 2.0 10/17/19 20:03 85 17 100 Room Air 21 84 18 94 10/17/19 20:01 94 Room Air 21 10/17/19 20:00 98.5 73 20 158/58 (91) 94 10/17/19 17:19 124/97 10/17/19 17:19 124/97 10/17/19 16:00 74 10/17/19 16:00 98.0 74 20 124/97 (106) 98 10/17/19 12:03 115/56 10/17/19 12:02 97.7 74 20 115/56 (75) 98 10/17/19 12:00 Nasal Cannula 2.0 10/17/19 12:00 74 10/17/19 11:59 80 16 99 Nasal Cannula 2.0 28 87 18 94 10/17/19 09:00 Nasal Cannula 2.0 10/17/19 08:49 75 123/57 10/17/19 08:49 123/57 10/17/19 08:00 98.4 75 20 123/57 (79) 98 10/17/19 08:00 73 Intake and Output 10/17/19 10/18/19 19:00 07:00 Intake Total 360 ml Output Total 700 ml Balance -340 ml Intake Oral 360 ml Output Urine Total 700 ml # Voids 4 3 Laboratory Tests Test 10/17/19 17:30 Prothrombin Time 12.2 SEC (9.30-11.50) H Prothromb Time International Ratio 1.2 (0.9-1.1) H Activated Partial Thromboplast Time 32 SEC (23-33) Objective HEAD AND NECK: Positive JVD, but no carotid bruits. LUNGS: Coarse rhonchi.Decreased breath sounds on Left CARDIOVASCULAR: Irregular S1 and S2 with no gallop. Defibrillator in left subclavian. ABDOMEN: Soft. EXTREMITIES: 1+ pitting edema. Hong Leon MD Oct 18, 2019 07:31
[2019-10-18 08:00] VITALS: BP 125/69
--- NOTE | 2019-10-18 08:00 | NUR ---
CASE MANAGEMENT:REVIEW 10/18/19 SI: SEPSIS. PNA. NSTEMI. COPD MYCOPLASMA IgG (+) 546 98.3 73 18 133/66 97% ON 2L/NC IS: PROVENTIL HHN Q4HRS RTC LEVAQUIN PO Q24 IV LASIX QD ASA PO QD COREG PO Q12 ISORDIL PO BID HYDRALAZINE PO Q6HS : TELEMETRY STATUS DCP: FROM HOME PLAN: THORACENTESIS SCHEDULED FOR TODAY ~ SANJIV HELD FOR PROCEDURE ~ LAST DOSE ON STAURDAY S/P ICD INTERROGATION ~ WNL
--- NOTE | 2019-10-18 08:32 | General Progress Note ---
Assessment/Plan Assessment/Plan: IMPRESSION: 1. Pneumonia, with parapneumonic effusion. 2. History of CHF. 3. Chronic renal failure. 4. Hyponatremia, hypokalemia. 5. Elevated troponin, possible demand ischemia. 6. Elevated natriuretic peptide. 7. Atrial fibrillation, paroxysmal. PLAN care noted on lasix cards and ID noted oxygen as needed strongly recommend tap; proceed today CPT for now Xarelto on hold not ready for dc yet impression, plan, and exam edited and reviewed in detail care discussed with RN Subjective Allergies: Coded Allergies: No Known Allergies (Unverified , 10/11/19) Subjective care noted Xarelto on hold CT chest reviewed CXR worsening and discussed feels stronger Objective Last 24 Hour Vital Signs Date Time Temp Pulse Resp B/P (MAP) Pulse Ox O2 Delivery O2 Flow Rate FiO2 10/18/19 08:00 98.1 73 20 125/69 (87) 98 10/18/19 06:06 124/74 10/18/19 04:00 98.3 73 18 133/66 (88) 96 10/18/19 04:00 73 10/18/19 03:26 76 17 100 Nasal Cannula 2.0 28 74 18 97 10/18/19 00:00 98.9 73 19 120/75 (90) 97 10/18/19 00:00 73 10/17/19 23:38 79 16 100 Room Air 21 77 18 97 10/17/19 23:31 120/75 10/17/19 22:00 72 10/17/19 21:29 74 124/70 10/17/19 21:00 Nasal Cannula 2.0 10/17/19 20:03 85 17 100 Room Air 21 84 18 94 10/17/19 20:01 94 Room Air 21 10/17/19 20:00 98.5 73 20 158/58 (91) 94 10/17/19 17:19 124/97 10/17/19 17:19 124/97 10/17/19 16:00 74 10/17/19 16:00 98.0 74 20 124/97 (106) 98 10/17/19 12:03 115/56 10/17/19 12:02 97.7 74 20 115/56 (75) 98 10/17/19 12:00 Nasal Cannula 2.0 10/17/19 12:00 74 10/17/19 11:59 80 16 99 Nasal Cannula 2.0 28 87 18 94 10/17/19 09:00 Nasal Cannula 2.0 10/17/19 08:49 75 123/57 10/17/19 08:49 123/57 Intake and Output 10/17/19 10/18/19 19:00 07:00 Intake Total 360 ml Output Total 700 ml Balance -340 ml Intake Oral 360 ml Output Urine Total 700 ml # Voids 4 3 Laboratory Tests 10/17/19 17:30: Prothrombin Time 12.2H, Prothromb Time International Ratio 1.2H, Activated Partial Thromboplast Time 32 Height (Feet): 5 Height (Inches): 8.00 Weight (Pounds): 215 Objective GENERAL: Well-developed male, at present, comfortable. but still weak HEENT: Negative. Extraocular movements are grossly intact. NECK: Supple. LUNGS: With significantly reduced breath sounds at the left lung base. Otherwise clear. not improved CARDIAC: S1, S2, overall irregularly irregular. The patient has a pacemaker, left chest wall. ABDOMEN: Soft, nontender. EXTREMITIES: No cyanosis, clubbing, or edema. nonfocal and weak Vasile Castle MD Oct 18, 2019 08:32
[2019-10-18] MEDS: Aspirin EC 81mg tab ORAL SCH ×2 (09:22→09:30)
[2019-10-18] MEDS: Carvedilol 25mg Tab ORAL SCH ×2 (09:22→21:18)
--- NOTE | 2019-10-18 09:32 | NUR ---
NURSE NOTES: pt refused ASA, MED wasted in med room.
--- NOTE | 2019-10-18 10:37 | Infectious Diseases Prog Note ---
Assessment/Plan Assessment/Plan antibiotics : levoquin A 1. pneumonia 2, pleural effusion s/p thoracentesis 3. diabetes mellitus 4. hypertension 5. CHF P 1. continue po levoquin 2 more days 2. will follow up cultures Subjective Constitutional: Denies: fever, chills Respiratory: Reports: productive cough - decreased; Denies: shortness of breath Gastrointestinal/Abdominal: Denies: nausea, vomiting, diarrhea Musculoskeletal: Denies: pain Allergies: Coded Allergies: No Known Allergies (Unverified , 10/11/19) Objective Vital Signs Last 24 Hour Vital Signs Date Time Temp Pulse Resp B/P (MAP) Pulse Ox O2 Delivery O2 Flow Rate FiO2 10/18/19 09:22 73 125/69 10/18/19 09:22 125/69 10/18/19 08:00 98.1 73 20 125/69 (87) 98 10/18/19 07:50 95 Nasal Cannula 2.0 28 10/18/19 07:50 73 18 99 Nasal Cannula 2.0 28 82 18 95 10/18/19 06:06 124/74 10/18/19 04:00 98.3 73 18 133/66 (88) 96 10/18/19 04:00 73 10/18/19 03:26 76 17 100 Nasal Cannula 2.0 28 74 18 97 10/18/19 00:00 98.9 73 19 120/75 (90) 97 10/18/19 00:00 73 10/17/19 23:38 79 16 100 Room Air 21 77 18 97 10/17/19 23:31 120/75 10/17/19 22:00 72 10/17/19 21:29 74 124/70 10/17/19 21:00 Nasal Cannula 2.0 10/17/19 20:03 85 17 100 Room Air 21 84 18 94 10/17/19 20:01 94 Room Air 21 10/17/19 20:00 98.5 73 20 158/58 (91) 94 10/17/19 17:19 124/97 10/17/19 17:19 124/97 10/17/19 16:00 74 10/17/19 16:00 98.0 74 20 124/97 (106) 98 10/17/19 12:03 115/56 10/17/19 12:02 97.7 74 20 115/56 (75) 98 10/17/19 12:00 Nasal Cannula 2.0 10/17/19 12:00 74 10/17/19 11:59 80 16 99 Nasal Cannula 2.0 28 87 18 94 Height (Feet): 5 Height (Inches): 8.00 Weight (Pounds): 215 Respiratory/Chest: lungs clear Cardiovascular: normal rate, regular rhythm, no gallop/murmur Abdomen: soft, non tender Extremities: no edema Laboratory Tests Test 10/17/19 17:30 Prothrombin Time 12.2 SEC (9.30-11.50) H Prothromb Time International Ratio 1.2 (0.9-1.1) H Activated Partial Thromboplast Time 32 SEC (23-33) Current Medications Medications (Trade) Dose Ordered Sig/Trudy Route PRN Reason Start Time Stop Time Status Last Admin Dose Admin Acetaminophen (Tylenol) 650 mg Q4H PRN ORAL Mild Pain/Temp > 100.5 10/11/19 18:00 11/10/19 17:59 10/16/19 21:00 Al Hydroxide/Mg Hydroxide (Mylanta) 30 ml QIDPRN PRN ORAL Constipation 10/11/19 18:00 11/10/19 17:59 Albuterol Sulfate (Proventil) 2.5 mg Q4H PRN HHN Shortness of Breath 10/16/19 20:15 10/21/19 20:14 Albuterol Sulfate (Proventil) 2.5 mg Q4HRT HHN 10/16/19 23:00 10/21/19 22:59 10/18/19 07:40 Aspirin (Ecotrin) 81 mg DAILY ORAL 10/14/19 09:00 11/13/19 08:59 10/16/19 09:09 Atorvastatin Calcium (Lipitor) 20 mg BEDTIME ORAL 10/13/19 21:00 11/12/19 20:59 10/17/19 21:28 Carvedilol (Coreg) 25 mg EVERY 12 HOURS ORAL 10/13/19 21:00 11/11/19 08:59 10/18/19 09:22 Dextrose (Dextrose 50%) 25 ml Q30M PRN IV Hypoglycemia 10/11/19 18:00 11/10/19 17:59 Dextrose (Dextrose 50%) 50 ml Q30M PRN IV Hypoglycemia 10/11/19 18:00 11/10/19 17:59 Furosemide (Lasix) 80 mg DAILY IV 10/15/19 09:00 11/12/19 20:59 10/18/19 09:22 Guaifenesin (Robitussin) 300 mg Q4H PRN ORAL For Cough 10/13/19 10:27 11/12/19 10:26 10/14/19 17:05 Hydralazine HCl (Apresoline) 10 mg Q6HR ORAL 10/13/19 18:00 11/12/19 17:59 10/18/19 06:06 Insulin Aspart (NovoLOG) BEFORE MEALS AND HS SUBQ 10/11/19 21:00 11/10/19 20:59 10/18/19 06:08 Isosorbide Dinitrate (Isordil) 10 mg BID ORAL 10/13/19 18:00 11/12/19 17:59 10/18/19 09:22 Levofloxacin (Levaquin) 250 mg DAILY ORAL 10/16/19 09:00 10/23/19 08:59 10/18/19 09:22 Pantoprazole (Protonix) 40 mg DAILY ORAL 10/12/19 09:00 11/11/19 08:59 10/18/19 09:22 Mari Bloom MD Oct 18, 2019 10:37
--- NOTE | 2019-10-18 11:12 | NUR ---
NURSE NOTES: Pt is alert orient and stable, V/S stable, left TELE for thoracentesis, waiting to come back.
--- NOTE | 2019-10-18 11:20 | NUR ---
RD ASSESSMENT & RECOMMENDATIONS SEE CARE ACTIVITY FOR COMPLETE ASSESSMENT DAILY ESTIMATED NEEDS: Needs based on cardiac, renal, DM, obesity/ 77kg abw 22-27 kcals/kg 7629-3332 total kcals 0.8-1.1 g protein/kg 62-85 g total protein 20-25 mL/kg 0353-4879 total fluid mLs NUTRITION DIAGNOSIS: Altered nutrition related lab values R/T renal dysfunction, DM, CHF as evidenced by elev creat (2.1), elev POC glu (190 262 257 265), elev BNP (4125) CURRENT DIET:CARDIAC, CCHO MED PO DIET RECOMMENDATIONS: Maintain Cardiac + CCHO Med ADDITIONAL RECOMMENDATIONS: * Daily standing wt monitoring: CHF dx, on Lasix * Rec f/up CBC + BMP. Monitor lytes closely w/ Lasix, replete as needed * A1C for eval of glycemic control * Consider long acting insulin for improved BG control * Monitor BM regularity, record in EMR- none recorded since adm -> consider daily bowel regimen
[2019-10-18 12:46] VITALS: BP 126/63
--- NOTE | 2019-10-18 12:46 | NUR ---
NURSE NOTES: pt came back from thoracentesis with 10cc out put, pt is stable, V/S stable, will continue to pass meds and monitor.
--- NOTE | 2019-10-18 12:58 | Diagnostic Imaging Report ---
Indications: Left Pleural effusion. Technique: Informed consent for the procedure was obtained. The risks, benefits, and alternatives to the procedure were discussed with the patient. We discussed the risk of pneumothorax and the potential for a second chest tube should this complication arise. We explained that the risk of pneumothorax was significantly higher than typical given the small amount of pleural fluid present. This was discussed with the patient as well as the referring physician. We were given verbal and written consent to proceed. Ultrasound used to localize optimal puncture site. Sterile prepping and draping of the left lower chest performed. Local anesthesia with 1% lidocaine. Dermatotomy made. Puncture of the pleural space using thoracentesis needle. Stylet removed. Aspiration performed.. Patient tolerated procedure well, without immediate complication. Findings: The left pleural effusion is small, complex, and multiloculated. This is a finding that is appreciated on ultrasound and not readily seen or appreciated on CT which was done without contrast material 10/14/2019. As I explained to Dr. Castle, the procedure is not warranted for therapeutic purposes as the procedure would not likely result in any therapeutic benefit given the small amount of fluid present. Moreover, obtaining a significant amount of fluid would be doubtful from a single pass thoracentesis given the multiple loculations present. The minimal or no therapeutic benefit therefore would not be worth the risk of pneumothorax, which is considerably higher given the small size of the collection. Per discussion, a diagnostic thoracentesis was requested to potentially direct therapy as the patient was not improving clinically. The procedure was then done for diagnostic purposes and secondarily to attempt to drain as much fluid as possible for the potential therapeutic benefit, which seemed unlikely. I was able to obtain about 10 cc of serosanguineous fluid within what appear to be the largest pocket (at most 2 cm in the AP dimension) in the posterior left lower chest wall. This was performed with the patient sitting upright. No more fluid could be aspirated. I did not attempt a second pass. Followup chest x-ray is pending. Impression: Successful ultrasound-guided diagnostic left thoracentesis, yielding only 10 cc of fluid.
--- NOTE | 2019-10-18 14:18 | NUR ---
NURSE NOTES: Dr CNA Daily called and ordered KEEP HOLDING XARELTO TILL FURTHER ORDER, Dr Castle is aware.
--- NOTE | 2019-10-18 14:19 | Diagnostic Imaging Report ---
Indication: Status post thoracentesis Comparison: 10/17/2019 A single view chest radiograph was obtained. Findings: There is no pneumothorax. Extensive left perihilar and basilar infiltrate demonstrated. Pleural-based density along the left lower chest demonstrated. Pacemaker noted. IMPRESSION: No pneumothorax
[2019-10-18 16:00] VITALS: BP 119/58
--- NOTE | 2019-10-18 16:19 | NUR ---
NURSE NOTES: Dr NORTH called and ordered to ask Dr BOND for pre op clearance, Dr BOND is aware and he stated he will do in his note tomorrow.
--- NOTE | 2019-10-18 17:30 | Consultation ---
DATE OF CONSULTATION: 10/18/2019 CONSULTING PHYSICIAN: Killian Calzada M.D., specialty in Thoracic Surgery. REFERRING PHYSICIAN: Vasile Castle M.D. HISTORY OF PRESENT ILLNESS: The patient is a 64-year-old male who was admitted to [facility] with increasing shortness of breath and cough. Radiographic imaging studies suggested a loculated pleural effusion and thoracic surgeon was consulted for further evaluation. PAST MEDICAL HISTORY: Notable for, 1. Hypertension. 2. Diabetes. 3. Cardiomyopathy. 4. Atrial fibrillation. PAST SURGICAL HISTORY: Notable for AICD placement in 2007. MEDICATIONS: Reviewed including Xarelto. ALLERGIES: The patient has no known drug allergies. FAMILY AND SOCIAL HISTORY: The patient is a former smoker. He denies any alcohol or illicit drug use. PHYSICAL EXAMINATION: GENERAL: He is noted to be afebrile. VITAL SIGNS: Within normal limits. CARDIAC: Regular rate and rhythm. No gallops or murmur. RESPIRATORY: Clear to auscultation on the right with decreased breath sounds noted on the left. ABDOMEN: Soft, nondistended, and nontender with normoactive bowel sounds. EXTREMITIES: Showed no evidence of cyanosis, clubbing, or edema. LABORATORY DATA: Laboratory studies performed on October 13, showed WBC of 12.6, hemoglobin 12, hematocrit 39, and platelet count of 225,000. Sodium is 135, potassium 3.6, chloride 100, bicarb 28, BUN 47, and creatinine 2.1. Glucose is 273. A chest CT scan was performed on 10/14/2019, which showed consolidation and atelectasis of the left upper lobe. There is compressive atelectasis of the left lower lobe likely associated consolidation due to a moderately large left-sided loculated pleural effusion. ASSESSMENT AND PLAN: This is a 64-year-old male who presented to [facility] with shortness of breath and radiographic imaging study of loculated left pleural effusion. The patient was evaluated at bedside. Patient may benefit from left video-assisted thoracoscopic surgery with decortication. After reviewing his clinical database, we will request to hold the anticoagulation as well as to obtain a preoperative Cardiology clearance prior to surgical intervention. I want to thank you for referring this patient to my attention. If there are any questions in regards to this patient's clinical care, please do not hesitate to contact me. Serrano M.D. DR: EDDIE JOB#: [id number] CC: RUT
--- NOTE | 2019-10-18 19:30 | NUR ---
HAND-OFF: Report given to STEPHENIE WHITEHEAD. Pt is awake and stable. Endorsed to hold XARELTO.
--- NOTE | 2019-10-18 19:30 | NUR ---
NURSE NOTES: Received report from Salma Kaplan RN. Pt in stable condition, alert, oriented x 4, denies pain at this time. Pt is SR, VS WNL. Will continue to monitor and plan of care. Addendum: 10/19/19 at 0633 by Patty Alexandre RN NURSE NOTES: Correction: Pt is V-Paced, asymptomatic.
[2019-10-18 20:00] VITALS: BP 132/72
[2019-10-18] MEDS: Atorvastatin 20mg tab ORAL SCH (21:18)
[2019-10-19] VITALS: BP 130/76
[2019-10-19] MEDS: HydrALAZINE 10mg Tab ORAL SCH ×3 (00:26→12:00)
[2019-10-19] MEDS: Albuterol ud Inhalation HHN SCH ×4 (03:38→15:30)
[2019-10-19 04:00] VITALS: BP 125/62
[2019-10-19] MEDS: NovoLOG Insulin Flexpen SUBQ SCH ×2 (06:07→12:21)
--- NOTE | 2019-10-19 07:16 | NUR ---
HAND-OFF: Report given to Fior Barr RN. Endorsed plan of care and close monitoring. Pt in stable condition at this time.
--- NOTE | 2019-10-19 07:36 | NUR ---
NURSE NOTES: Received report from VENTURA Brambila. Patient is A/Ox4, no complain of pain. No s/sx of acute distress. Pt lying in bed on 2L NC, breathing even and unlabored. Pt is having CPT with RT. Bed on lowest position, call light within reach. Will continue plan of care.
[2019-10-19 08:00] VITALS: BP 130/71
--- NOTE | 2019-10-19 08:19 | General Progress Note ---
Assessment/Plan Assessment/Plan: IMPRESSION: 1. Pneumonia, with parapneumonic effusion, possibly loculated 2. History of CHF. 3. Chronic renal failure. 4. Hyponatremia, hypokalemia. 5. Elevated troponin, possible demand ischemia. 6. Elevated natriuretic peptide. 7. Atrial fibrillation, paroxysmal. PLAN care noted on lasix cards and ID noted now on levaquin only needs further intervention oxygen as needed strongly recommend tap; proceed today CPT for now Xarelto on hold not ready for dc yet VATS? with decortication and bronchoscopy impression, plan, and exam edited and reviewed in detail care discussed with RN Subjective Allergies: Coded Allergies: No Known Allergies (Unverified , 10/11/19) Subjective care noted Xarelto on hold CT chest reviewed CXR worsening with concern for loculated effusion feels stronger d/w family Objective Last 24 Hour Vital Signs Date Time Temp Pulse Resp B/P (MAP) Pulse Ox O2 Delivery O2 Flow Rate FiO2 10/19/19 07:12 75 20 100 Nasal Cannula 2.0 28 73 16 93 10/19/19 07:02 93 Nasal Cannula 2.0 28 10/19/19 05:02 119/62 10/19/19 04:00 98.2 73 20 125/62 (83) 96 10/19/19 03:49 73 10/19/19 00:26 130/76 10/19/19 00:00 97.7 73 20 130/76 (94) 94 10/19/19 00:00 79 10/18/19 23:40 78 20 99 Nasal Cannula 2.0 28 10/18/19 23:30 75 20 97 Nasal Cannula 2.0 28 10/18/19 21:18 72 132/72 10/18/19 21:00 Room Air 10/18/19 20:04 81 20 96 Nasal Cannula 2.0 28 10/18/19 20:00 97.9 72 20 132/72 (92) 96 10/18/19 20:00 72 10/18/19 19:54 94 Nasal Cannula 2.0 28 10/18/19 19:54 79 20 94 Nasal Cannula 2.0 28 10/18/19 17:38 119/58 10/18/19 17:37 119/58 10/18/19 16:00 97.9 73 20 119/58 (78) 96 10/18/19 15:38 71 18 100 Nasal Cannula 2.0 28 83 18 96 10/18/19 15:19 76 10/18/19 13:21 126/63 10/18/19 12:46 98.1 71 20 126/63 (84) 96 10/18/19 11:36 73 10/18/19 09:22 73 125/69 10/18/19 09:22 125/69 10/18/19 09:00 Nasal Cannula 2.0 Intake and Output 10/18/19 10/19/19 19:00 07:00 Intake Total 850 ml 320 ml Balance 850 ml 320 ml Intake Oral 850 ml 320 ml # Voids 4 4 Height (Feet): 5 Height (Inches): 8.00 Weight (Pounds): 215 Objective GENERAL: Well-developed male, at present, comfortable. but still weak HEENT: Negative. Extraocular movements are grossly intact. NECK: Supple. LUNGS: With significantly reduced breath sounds at the left lung base. Otherwise clear. not improved CARDIAC: S1, S2, overall irregularly irregular. The patient has a pacemaker, left chest wall. ABDOMEN: Soft, nontender. EXTREMITIES: No cyanosis, clubbing, or edema. nonfocal and weak Vasile Castle MD Oct 19, 2019 08:19
--- NOTE | 2019-10-19 08:29 | Cardiac Electrophysiology PN ---
Assessment/Plan Assessment/Plan 1. NSTEMI type 2 likely due to renal failure. On aspirin, beta-sherlyn, and statin. Troponin is low level . No CP. 2. History of severe cardiomyopathy. EF improved to 55% with biv pacing Continue Coreg 25 bid, hydralazine, nitrates and Lasix 80 mg IV daily. 3. Chronic atrial fibrillation, on Xarelto 15 mg daily and Coreg 25 mg b.i.d. Xarelto held for VATS 4. Status post [facility] biventricular defibrillator and recent generator change. Interrogated and showed Nl Fx. 5. Chronic obstructive pulmonary disease and pneumonia. Management by Dr. Castle and Dr. Bloom, on IV antibiotics. 6. CKD Cr 2.1. Actually better despite iv Lasix 80 daily 7. Small, complex, and multiloculated left pleural effusion. Had only 10 cc Thoracentesis yesterday. Is being considered for VATS. Patient at Moderate to high risk for periop mortality. No further Cardiac testing necessary and EF is now Normalized. Need to apply Magnet to ICD during VATS DW RN, Dr NORTH and Dr Castle Subjective Subjective On Lasix 80 iv daily .Had Left thoracentesis yesterday only [address] surgery eval for possible VATS. RN at bedside Objective Last 24 Hour Vital Signs Date Time Temp Pulse Resp B/P (MAP) Pulse Ox O2 Delivery O2 Flow Rate FiO2 10/19/19 07:12 75 20 100 Nasal Cannula 2.0 28 73 16 93 10/19/19 07:02 93 Nasal Cannula 2.0 28 10/19/19 05:02 119/62 10/19/19 04:00 98.2 73 20 125/62 (83) 96 10/19/19 03:49 73 10/19/19 00:26 130/76 10/19/19 00:00 97.7 73 20 130/76 (94) 94 10/19/19 00:00 79 10/18/19 23:40 78 20 99 Nasal Cannula 2.0 28 10/18/19 23:30 75 20 97 Nasal Cannula 2.0 28 10/18/19 21:18 72 132/72 10/18/19 21:00 Room Air 10/18/19 20:04 81 20 96 Nasal Cannula 2.0 28 10/18/19 20:00 97.9 72 20 132/72 (92) 96 10/18/19 20:00 72 10/18/19 19:54 94 Nasal Cannula 2.0 28 10/18/19 19:54 79 20 94 Nasal Cannula 2.0 28 10/18/19 17:38 119/58 10/18/19 17:37 119/58 10/18/19 16:00 97.9 73 20 119/58 (78) 96 10/18/19 15:38 71 18 100 Nasal Cannula 2.0 28 83 18 96 10/18/19 15:19 76 10/18/19 13:21 126/63 10/18/19 12:46 98.1 71 20 126/63 (84) 96 10/18/19 11:36 73 10/18/19 09:22 73 125/69 10/18/19 09:22 125/69 10/18/19 09:00 Nasal Cannula 2.0 Intake and Output 10/18/19 10/19/19 19:00 07:00 Intake Total 850 ml 320 ml Balance 850 ml 320 ml Intake Oral 850 ml 320 ml # Voids 4 4 Objective HEAD AND NECK: Positive JVD, but no carotid bruits. LUNGS: Coarse rhonchi.Decreased breath sounds on Left CARDIOVASCULAR: Irregular S1 and S2 with no gallop. Defibrillator in left subclavian. ABDOMEN: Soft. EXTREMITIES: 1+ pitting edema. Hong Leon MD Oct 19, 2019 08:29
[2019-10-19] MEDS: Aspirin EC 81mg tab ORAL SCH (09:00)
[2019-10-19] MEDS: Carvedilol 25mg Tab ORAL SCH (09:16)
--- NOTE | 2019-10-19 09:29 | NUR ---
CASE MANAGEMENT:REVIEW 10/19/19 SI: LARGE LEFT SIDED LOCULATED PLEURAL EFFUSION 97.2 70 20 130/71 100% ON 2L/NC IS: LEVAQUIN PO QD ALBUTEROL HHN Q4HRS IV LASIX QD ASA PO QD COREG PO Q12 ISORDIL PO BID HYDRALAZINE PO Q6HRS : TELEMETRY PLAN: CONTINUE TO HOLD XARELTO PER DR NORTH VATS W/DECORTICATION AND BRONCHOSCOPY
--- NOTE | 2019-10-19 09:38 | Infectious Diseases Prog Note ---
Assessment/Plan Assessment/Plan A; 1. Possible community-acquired pneumonia versus atypical pneumonia. 2. Diabetes. 3. Hypertension. 4. Leukocytosis, improving. 5. Congestive heart failure. 6. Loculated Pleural effusion PLAN: 1. Continue PO Levaquin for today 2. Positive mycoplasma serology (IgG) 3. will have pleural tap tomorrow Subjective ROS Limited/Unobtainable: No Constitutional: Reports: no symptoms Respiratory: Reports: dry cough; Denies: shortness of breath Gastrointestinal/Abdominal: Reports: no symptoms Genitourinary: Reports: no symptoms Allergies: Coded Allergies: No Known Allergies (Unverified , 10/11/19) Objective Vital Signs Last 24 Hour Vital Signs Date Time Temp Pulse Resp B/P (MAP) Pulse Ox O2 Delivery O2 Flow Rate FiO2 10/19/19 09:17 130/71 10/19/19 09:16 70 130/71 10/19/19 08:27 Nasal Cannula 2.0 10/19/19 08:00 97.2 70 20 130/71 (90) 100 10/19/19 07:12 75 20 100 Nasal Cannula 2.0 28 73 16 93 10/19/19 07:02 93 Nasal Cannula 2.0 28 10/19/19 05:02 119/62 10/19/19 04:00 98.2 73 20 125/62 (83) 96 10/19/19 03:49 73 10/19/19 00:26 130/76 10/19/19 00:00 97.7 73 20 130/76 (94) 94 10/19/19 00:00 79 10/18/19 23:40 78 20 99 Nasal Cannula 2.0 28 10/18/19 23:30 75 20 97 Nasal Cannula 2.0 28 10/18/19 21:18 72 132/72 10/18/19 21:00 Room Air 10/18/19 20:04 81 20 96 Nasal Cannula 2.0 28 10/18/19 20:00 97.9 72 20 132/72 (92) 96 10/18/19 20:00 72 10/18/19 19:54 94 Nasal Cannula 2.0 28 10/18/19 19:54 79 20 94 Nasal Cannula 2.0 28 10/18/19 17:38 119/58 10/18/19 17:37 119/58 2/3/20 16:00 97.9 73 20 119/58 (78) 96 10/18/19 15:38 71 18 100 Nasal Cannula 2.0 28 83 18 96 10/18/19 15:19 76 10/18/19 13:21 126/63 10/18/19 12:46 98.1 71 20 126/63 (84) 96 10/18/19 11:36 73 Height (Feet): 5 Height (Inches): 8.00 Weight (Pounds): 215 General Appearance: no acute distress HEENT: mucous membranes moist Respiratory/Chest: lungs clear, other - oxygen by nasal cannula Cardiovascular: normal rate Abdomen: soft, non tender Extremities: other - mild edema Neurologic/Psychiatric: alert, oriented x 3, responsive Current Medications Medications (Trade) Dose Ordered Sig/Trudy Route PRN Reason Start Time Stop Time Status Last Admin Dose Admin Acetaminophen (Tylenol) 650 mg Q4H PRN ORAL Mild Pain/Temp > 100.5 10/11/19 18:00 11/10/19 17:59 10/18/19 21:17 Al Hydroxide/Mg Hydroxide (Mylanta) 30 ml QIDPRN PRN ORAL Constipation 10/11/19 18:00 11/10/19 17:59 Albuterol Sulfate (Proventil) 2.5 mg Q4H PRN HHN Shortness of Breath 10/16/19 20:15 10/21/19 20:14 Albuterol Sulfate (Proventil) 2.5 mg Q4HRT HHN 10/16/19 23:00 10/21/19 22:59 10/19/19 07:02 Aspirin (Ecotrin) 81 mg DAILY ORAL 10/14/19 09:00 11/13/19 08:59 10/16/19 09:09 Atorvastatin Calcium (Lipitor) 20 mg BEDTIME ORAL 10/13/19 21:00 11/12/19 20:59 10/18/19 21:18 Carvedilol (Coreg) 25 mg EVERY 12 HOURS ORAL 10/13/19 21:00 11/11/19 08:59 10/19/19 09:16 Dextrose (Dextrose 50%) 25 ml Q30M PRN IV Hypoglycemia 10/11/19 18:00 11/10/19 17:59 Dextrose (Dextrose 50%) 50 ml Q30M PRN IV Hypoglycemia 10/11/19 18:00 11/10/19 17:59 Furosemide (Lasix) 80 mg DAILY IV 10/15/19 09:00 11/12/19 20:59 10/19/19 09:17 Guaifenesin (Robitussin) 300 mg Q4H PRN ORAL For Cough 10/13/19 10:27 11/12/19 10:26 10/14/19 17:05 Hydralazine HCl (Apresoline) 10 mg Q6HR ORAL 10/13/19 18:00 11/12/19 17:59 10/19/19 05:02 Insulin Aspart (NovoLOG) BEFORE MEALS AND HS SUBQ 10/11/19 21:00 11/10/19 20:59 10/19/19 06:07 Isosorbide Dinitrate (Isordil) 10 mg BID ORAL 10/13/19 18:00 11/12/19 17:59 10/19/19 09:17 Levofloxacin (Levaquin) 250 mg DAILY ORAL 10/16/19 09:00 10/23/19 08:59 10/19/19 09:17 Pantoprazole (Protonix) 40 mg DAILY ORAL 10/12/19 09:00 11/11/19 08:59 10/19/19 09:17 [place] MD Oct 19, 2019 09:38
[2019-10-19 12:00] VITALS: BP 106/67
--- NOTE | 2019-10-19 12:02 | NUR ---
NURSE NOTES: Received d/c order.
--- NOTE | 2019-10-19 13:01 | CDS Physician Query ---
Clarification is required for compliance, coding accuracy, and to reflect severity of illness for this patient Dear Dr. Vasile Castle Date: 10/19/2019 Oyster Washer/CDS Name: Mercedes Daniel Clinical Documentation states: Thoracic Surgery consult: 64-year-old male who was admitted to [facility] with increasing shortness of breath and cough. Radiographic imaging studies suggested a loculated pleural effusion ...Patient may benefit from left video-assisted thoracoscopic surgery with decortication. Treatment: IV vancomycin, pip-tazo, lasix; Oral levofloxacin Please respond to the following question: Is there a diagnosis specific to these symptoms or values? If so please state below. PHYSICIAN RESPONSE: [] Empyema [] Pleural Effusion due to CHF [] Other: [] Clinically Undeterminable Present on Admission: [] Yes [] No [] Clinically Undetermined Physician signature Date Please also document in your Progress Notes and/or Discharge Summary and indicate if the condition was present on admission. MTDD
[2019-10-19] MEDS ORDERED: LISINOPRIL5 MG ORAL (13:07)
[2019-10-19] MEDS ORDERED: LEVOTHYROXINE75 MCG ORAL (13:08)
[2019-10-19] MEDS ORDERED: NEPHROVITE1 TAB ORAL (13:08)
[2019-10-19] MEDS ORDERED: BYDUREON BCISE SUBQ (13:08)
[2019-10-19] MEDS ORDERED: WELCHOL3.75 GM ORAL (13:08)
[2019-10-19] MEDS ORDERED: GABAPENTIN100 MG ORAL (13:08)
[2019-10-19] MEDS ORDERED: GLIMEPIRIDE4 MG ORAL (13:08)
--- NOTE | 2019-10-19 13:14 | NUR ---
*-* INSURANCE *-* PATIENT HAS BEEN REFERRED TO: [facility] P: [phone] F: [phone] F#2: [phone]
[2019-10-19] MEDS ORDERED: CRESTOR40 MG ORAL (15:05)
[2019-10-19] MEDS ORDERED: PROCTOCREAM-HC30 GM RC (15:05)
[2019-10-19] MEDS ORDERED: CLONIDINE0.1 MG PO (15:05)
[2019-10-19] MEDS ORDERED: PANTOPRAZOLE SO40 MG ORAL (15:05)
[2019-10-19] MEDS ORDERED: diclofenac sodium (15:05)
[2019-10-19] MEDS ORDERED: TESTOSTERONE1.25 GM TD (15:05)
[2019-10-19] MEDS ORDERED: [UNRECOGNIZED DRUG - OTHER] PO (15:05)
[2019-10-19] MEDS ORDERED: PATANASE30.5 GM NS (15:05)
[2019-10-19] MEDS ORDERED: RESTASIS1 EACH BOTH EYES (15:05)
[2019-10-19] MEDS ORDERED: NOVOLOG MI100 UNIT/4 SQ (15:05)
[2019-10-19] MEDS ORDERED: albuterol HFA NASAL (15:05)
[2019-10-19] MEDS ORDERED: TEMAZEPAM7.5 MG ORAL (15:05)
[2019-10-19] MEDS ORDERED: HALOBETASOL TOPIC (15:05)
[2019-10-19] MEDS ORDERED: PROCTOCREAM-HC30 GM TOPIC (15:05)
[2019-10-19] MEDS ORDERED: FEBUXOSTAT40 MG PO (15:05)
[2019-10-19] MEDS ORDERED: trelegy ellipta IH (15:05)
[2019-10-19] MEDS ORDERED: DOXAZOSIN MESYLA8 MG ORAL (15:05)
[2019-10-19] MEDS ORDERED: FUROSEMIDE40 MG/5 ML ORAL (15:05)
[2019-10-19] MEDS ORDERED: CARVEDILOL25 MG ORAL (15:05)
[2019-10-19] MEDS ORDERED: RIVASTIGMINE TOPIC (15:05)
[2019-10-19] MEDS ORDERED: SOLIFENACIN SUCC5 MG PO (15:05)
[2019-10-19] MEDS ORDERED: METOLAZONE2.5 MG PO (15:05)
[2019-10-19] MEDS ORDERED: XARELTO15 MG ORAL (15:05)
[2019-10-19] MEDS ORDERED: LIDODERM700 M1 TOPIC (15:05)
[2019-10-19] MEDS ORDERED: NAMENDA10 MG ORAL (15:05)
[2019-10-19] MEDS ORDERED: VASCEPA1 GM PO ×2 (15:05→15:20)
[2019-10-19] MEDS ORDERED: NITRO0.4 SL (15:05)
[2019-10-19] MEDS ORDERED: GAVILAX17 GM PO (15:05)
[2019-10-19] MEDS ORDERED: ABILIFY2 MG ORAL (15:05)
[2019-10-19] MEDS ORDERED: CLONIDINE HCL0.1 MG PO (15:17)
[2019-10-19] MEDS ORDERED: FUROSEMIDE80 M1 ORAL (15:18)
[2019-10-19 16:00] VITALS: BP 129/77
--- NOTE | 2019-10-19 17:15 | NUR ---
NURSE NOTES: Patient left the unit in stable condition, will be picked up by a family member. Removed IV and tele monitor.
--- NOTE | 2019-10-21 08:27 | Discharge Summary ---
Discharge Summary Discharge Summary _ DATE OF ADMISSION: 10/11/2019 DATE OF DISCHARGE: 10/19/2019 DISCHARGED BY: Dr. Castle REASON FOR ADMISSION: 64 years old male with past medical history of COPD, pacemaker, CHF, hypertension, paroxysmal atrial fibrillation, chronic kidney disease, presented with increased shortness of of breath and hypotension to the office. Patient noted to be more dyspneic and had some congestion. Patient was transferred to emergency room and admitted for further evaluation and management. Chest x-ray upon admission revealed congestive heart failure. Consolidation in the left lung base related to congestive heart failure or superimposed pneumonia and/ or effusion. Laboratory work-up was significant for leukocytosis, stable hemoglobin and hematocrit. No fevers. Sodium 127, potassium 3.0. BUN 60, creatinine 2.2. Glucose 173. Lactic acid 1.2. AST 75 , ALT 164, alkaline phosphatase 162. Lipase 356. Troponin 0.252. pro BNP 3899. Albumin 2.3. Urinalysis revealed no evidence of urinary tract infection , +3 protein. Patient admitted for further management. CONSULTANTS: heavy forging machine operator Dr. Mcmahon cardiothoracic surgeon Dr. Calzada ID specialist Dr. Bloom HOSPITAL COURSE: Patient admitted to telemetry floor and started on empiric antibiotics. Home medication resumed. Echocardiogram demonstrated preserved ejection fraction of 55 to 60% with mild left ventricular hypertrophy. No evidence of pericardial for wall motion abnormality. Small posterior pericardial effusion with no evidence of tamponade. Mild to moderate tricuspid regurgitation. Right ventricular systolic pressure of 45 consistent with a moderate pulmonary hypertension Storage Management Architect followed. Serial troponin were obtained; second troponin trended down, still elevated 0.104. Per heavy forging machine operator patient had NSTEMI type II , likely due to renal failure. Patient was on antiplatelet therapy with aspirin , beta-sherlyn and statin. Patient denied chest pain. Nitrates were on board. Per heavy forging machine operator patient had a history of severe cardiomyopathy . Current echocardiogram revealed preserved ejection fraction fraction . Patient was continued on medical management for congestive heart failure with beta-sherlyn , Lasix, hydralazine and nitrates. Volumes were closely monitored. Patient with history of atrial fibrillation . Rate was controlled : patient had pacemaker and was on Coreg. Anticoagulation with Xarelto continued. Defibrillator was interrogated and showed normal functioning. Ultrasound-guided thoracentesis was attempted on 10/12 , but not performed due to patient request. CT of the chest which revealed consolidation and atelectasis left upper lobe. Compressive atelectasis left lower lobe and likely associated consolidation due to moderate to large left pleural effusion. Equivocal slight ground glass opacity of the right lung of doubtful significance. Small pericardial effusion. Borderline cardiomegaly. AICD. Patient agreed for thoracentesis . Subsequently ultrasound guided thoracentesis was performed on 10/18 which only yielded 10 cc of pleural fluid. Biopsy of pleural fluid revealed no malignant cells. Cardiothoracic surgeon consult was requested. Surgeon recommended left video-assisted thoracoscopy surgery with decortication. Per surgeon: Anticoagulation need to be hold and preoperative cardiology clearance should be obtained. Per heavy forging machine operator patient was at moderate to high risk for perioperative mortality. No further cardiac testing was necessarily. Ejection fraction normalized. Storage Management Architect advised to apply Magnet to ICD during VATS and hold Xarelto prior to planned surgery Antibiotics provided as per ID specialist recommendation. Blood cultures were negative. Influenza swab was negative. Patient continued to have persistent mild leukocytosis , no fevers. Serology for Legionella was negative. Serology for Mycoplasma titer was positive for IgG, probably indicating prior exposure. IgM titer was within normal limits. Supplemental oxygen provided and titrated to keep pulse oximetry above 92%. Pulmonary toilet with bronchodilators via HHN and CPT provided . Renal parameters and electrolytes were closely monitored. Electrolytes corrected as needed. Prior to discharge sodium and potassium corrected: sodium 135 , potassium 3.6. Creatinine remained at the same range. Patient was discharged home with home health services to continue antibiotics. Patient to follow-up with corporate technical recruiter next week. Patient will be scheduled for VATS procedure electively. FINAL DIAGNOSES: Pneumonia ( community acquired vs atypical ) with parapneumonic effusion, Loculated left pleural effusion NSTEMI type II, likely due to renal failure Congestive heart failure with history of severe cardiomyopathy ( currently preserved EF) Chronic atrial fibrillation Status post [place] biventricular defibrillator and recent generator change Chronic renal failure Diabetes mellitus Hypertension COPD Electrolyte imbalance hyponatremia hypokalemia DISCHARGE MEDICATIONS: See Medication Reconciliation list. DISCHARGE INSTRUCTIONS: Patient was discharged home with home health services. Follow up with primary care provider in one week. I have been assigned to dictate discharge summary for this account. I was not involved in the patient's management. Farnaz Marx NP Oct 21, 2019 08:27
== END 2019-10-19 17:15 | disposition home health service (06) | DRG 280 ==
LOC: EMR 10:30 → 2E 10:47 → EDBEDREQ 15:40 → 2E 16:05
PROC: 0W9B3ZZ Drainage of Left Pleural Cavity, Percutaneous Approach (ICD-10-PCS; principal; 2019-10-18)
DX: I13.0 Hypertensive heart and chronic kidney disease with heart failure and stage 1 through stage 4 chronic kidney disease, or unspecified chronic kidney disease (principal); J18.9 Pneumonia, unspecified organism; I21.A1 Myocardial infarction type 2; E87.1 Hypo-osmolality and hyponatremia; I48.20 Chronic atrial fibrillation, unspecified; J90 Pleural effusion, not elsewhere classified; J44.0 Chronic obstructive pulmonary disease with (acute) lower respiratory infection; N18.9 Chronic kidney disease, unspecified; I50.9 Heart failure, unspecified; I95.9 Hypotension, unspecified; Z95.0 Presence of cardiac pacemaker; Z95.810 Presence of automatic (implantable) cardiac defibrillator; E87.6 Hypokalemia; E11.22 Type 2 diabetes mellitus with diabetic chronic kidney disease; I42.9 Cardiomyopathy, unspecified
CPT/HCPCS: 36415; 71045; 71250; 76604; 76942; 80048; 80053; 80202; 81003; 82550; 82962; 83605; 83690; 83735; 83880; 84100; 84484; 85025; 85610; 85730; 86710; 86713; 86738; 87040; 93306; 94640; 94664; 96365; 96366; 96367; 96368; 96372; 96375; 99291; J1815; J2405; J8499